=== PATIENT | female | born 1955 | race Caucasian/White ===

== ENCOUNTER 2024-05-15 12:59 | Outpatient (AMB) | payer OTHER, SELFPAY ==
--- NOTE | 2024-05-15 13:10 | A.OFFPC_ITS ---
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 Intake Note: New patient visit Allergies No Known Allergies Allergy (Verified 05/15/24 13:19) Medication List - Last Reconciled 05/15/24 by Nadiya Griggs PA-C atorvastatin 10 mg PO DAILY fluoxetine 20 mg PO DAILY levothyroxine 50 mcg PO DAILY Tobacco use date assessed: 05/15/24 Fall risk assessment: No Falls in past year Last assessed Fall Risk: 05/15/24 Dental Screening Dental Screen Date: 05/15/24 Did you have a dental visit in the last 12 months?: Yes Did you have a dental problem in the last 6 months where you did not have access to dental care?: No Was dental information given to patient?: Patient has dentist HPI H[employer] INST[employer]ER AND REPAIRER establish care HPI Details Patient is a 68-year-old female who presents today to establish care. She has a significant past medical history of depression, hyperlipidemia, and hypothyroidism. She is transferring from [place]. She states that she moved here last year. In 2021 she lost her so then she retired, sold her house and moved back to [place] where she is from. CV: Blood pressures have always been normal. Her blood pressure today in the office is 90/60. She is on atorvastatin 10 mg. States that her last cholesterol was normal. She does have a copy of it from [place] and last year her LDL was 80. HDL 60, triglycerides 113, cholesterol 163. LFTs WNL. Endo: Last TSH was 1.33. She is on levothyroxine 50 mcg. Psych: States that she has been well-controlled on the fluoxetine 20 mg. Immunizations up-to-date. Colonoscopy: Overdue Mammogram: Due this fall Pap: S/p partial hysterectomy Bone density: Overdue Low-dose chest CT: She states that she has had 1 in the past. She continues to smoke and does not have any intention of quitting [facility] Surgical History (Updated 05/15/24 @ 13:47 by Nadiya Griggs PA-C) H/O wisdom tooth extraction History of partial hysterectomy History of tonsillectomy Social History (Updated 05/15/24 @ 13:13 by Michelle Ríos CMA) Housing: Condominium Patient Tobacco Use Status: Current everyday Tobacco user Cigarette Packs Per Day: 10 Years Smoked: 55 e-Cigarette/Vaping Use: Never Used Second Hand Smoke Exposure: No Current occupational status: retired Current occupational exposures/hazards: No Cognitive needs: No Hearing needs: No Vision needs: Yes (reading glasses) Questionnaire PHQ-9 Over the last 2 weeks, how often have you been bothered by any of the following problems? 1. Little interest or pleasure in doing things: not at all 2. Feeling down, depressed, or hopeless: not at all 3. Trouble falling or staying asleep, or sleeping too much: several days 4. Feeling tired or having little energy: several days 5. Poor appetite or overeating: not at all 6. Feeling bad about yourself - or that you are a failure or have let yourself or your family down: not at all 7. Trouble concentrating on things, such as reading the newspaper or watching television: not at all 8. Moving or speaking so slowly that other people could have noticed. Or the opposite - being so fidgety or restless that you have been moving around a lot more than usual: not at all 9. Thoughts that you would be better off or of hurting yourself in some way: not at all Total score: 2 Depression Screening Interpretation: Negative Depression Screening Done: Yes 73169 - PHQ-9 Billing: Yes Source: Developed by Drs. Liban Marquez, Christine Wesley, Carlton Ramos and colleagues, with an educational jojo from [employer] Thrive Questionnaire I am a: Patient What is your living situation today?: I have a steady place to live Within the past 12 months, did the food you bought not last and you didn't have the money to get more?: Never true Within the past 12 months, did you worry whether your food would run out before you got money to buy more?: Never true Do you have trouble paying for medicines?: No Do you have trouble getting transportation to medical appointments?: No Do you have trouble paying your heating and electricity bill?: No Do you have trouble taking care of your child, family member or friend?: No Do you have trouble with day-to-day activities such as bathing, preparing meals, shopping, managing finances, etc.?: No Are you currently unemployed and looking for a job?: No Are you interested in more education?: No Please select the resources that you would like help with: None Currently or been in a relationship where the following occur: No concerns reported THRIVE Score: 0 AUDIT C Alcohol Use Questionnaire (AUDIT-C) 1. How often do you have a drink containing alcohol?: Monthly or less 2. How many drinks containing alcohol do you have on a typical day when you are drinking?: 1 or 2 3. How often do you have six or more drinks on one occasion?: Never Total Score: 1 Score Reviewed/Action Taken: Yes AURORA-7 AMB Questionnaire AURORA-7 Feeling nervous, anxious, or on edge: 0 = Not at all Not being able to stop or control worryin = Not at all Worrying too much about different things: 0 = Not at all Trouble relaxin = Not at all Being so restless that it is hard to sit still: 0 = Not at all Becoming easily annoyed or irritable: 0 = Not at all Feeling afraid as if something awful might happen: 0 = Not at all Total AURORA-7 score (0-4 normal; 5-9 mild; 10-14 moderate; 15-21 severe): 0 Source: Developed by Drs. Liban Marquez, Christine Wesley, Carlton Ramos and colleagues, with an educational jojo from [employer] AURORA-7 Assessment Billing AURORA-7 Assessment Tool: AURORA-7 Assessment 22706 Physical exam (Primary Care) Vital Signs: Last Vital Signs Temp 98.7 F 05/15/24 13:25 Pulse 67 05/15/24 13:25 Resp 14 05/15/24 13:25 BP 90/60 05/15/24 13:25 Pulse Ox 95 05/15/24 13:25 Oxygen Delivery Method Room Air 05/15/24 13:25 BMI result Body Mass Index 25.3 Tobacco/Smoking Status: Tobacco use Status Tobacco use date assessed 05/15/24 05/15/24 13:18 Patient Tobacco Use Status Never used Tobacco 05/15/24 13:18 e-Cigarette/Vaping Use Never Used 05/15/24 13:18 Depression Screening Interpretation: Negative Currently or been in a relationship where the following occur: No concerns reported Const Orientation/consciousness: patient oriented x3 HENMT Ears: hearing grossly normal bilaterally Neck Thyroid: Thyroid normal Lymphatic: no lymphadenopathy noted Resp Auscultation: clear to auscultation bilaterally Cardio Rate: regular rate Rhythm: regular rhythm Heart sounds: S1 normal heart sound present and S2 normal heart sound present GI Inspection: Yes normal to inspection Palpation (GI): Soft to palpation and Other GI palpation findings present (nontender, no cva tenderness) Auscultation: normoactive bowel sounds Rectal Exam - Female: deferred Skin General skin exam: no rashes or lesions noted Neuro General: patient oriented x3, gait normal and no focal motor deficits Assessment and Plan Assessment & Plan (1) Hyperlipidemia: Code(s): E78.5 - Hyperlipidemia, unspecified Qualifiers: Hyperlipidemia type: mixed hyperlipidemia Qualified Code(s): E78.2 - Mixed hyperlipidemia Plan: continue atorvastatin (2) Hypothyroid: Code(s): E03.9 - Hypothyroidism, unspecified Qualifiers: Hypothyroidism type: unspecified Qualified Code(s): E03.9 - Hypothyroidism, unspecified Plan: tsh ordered. continue levothyroxine 50 mcg (3) Recurrent depressive disorder, current episode mild: Code(s): F33.0 - Major depressive disorder, recurrent, mild Plan: continue prozac. (4) Tobacco use: Code(s): Z72.0 - Tobacco use Plan: Low-dose chest CT ordered Bone density ordered Labs ordered Colonoscopy ordered Orders: Orders Comprehensive [place]. Panel Fast Today E03.9 - Hypothyroidism, unspecified, E78.5 - Hyperlipidemia, unspecified, F33.0 - Major depressive disorder, recurrent, mild Lipid Panel Today E03.9 - Hypothyroidism, unspecified, E78.5 - Hyperlipidemia, unspecified, F33.0 - Major depressive disorder, recurrent, mild UA CC w/rflx Micro + Cult Today E03.9 - Hypothyroidism, unspecified, E78.5 - Hyperlipidemia, unspecified, F33.0 - Major depressive disorder, recurrent, mild Complete Blood Count Auto Diff Today E03.9 - Hypothyroidism, unspecified, E78.5 - Hyperlipidemia, unspecified, F33.0 - Major depressive disorder, recurrent, mild TSH reflex Free T4 Today E03.9 - Hypothyroidism, unspecified, E78.5 - Hyperlipidemia, unspecified, F33.0 - Major depressive disorder, recurrent, mild XR DEXA axial skeleton Today Z78.0 - Asymptomatic menopausal state Referrals Open Access Screening Colonoscopy Referral Z12.11 - Encounter for screening for malignant neoplasm of colon, Z12.12 - Encounter for screening for malignant neoplasm of rectum Thoracic/General Surgery Referral Z12.2 - Encounter for screening for malignant neoplasm of respiratory organs, Z72.0 - Tobacco use Coding Level of Care Code New Pt Level 4 (06828) Complex EM visit Add On G2211 Diagnoses Mixed hyperlipidemia E78.2 Hyperlipidemia type: mixed hyperlipidemia Hypothyroidism, unspecified type E03.9 Hypothyroidism type: unspecified Recurrent depressive disorder, current episode mild F33.0 Tobacco use Z72.0 Additional Codes AURORA-7 Assessment Billing - AURORA-7 Assessment Tool: AURORA-7 Assessment 48058 ([id number])
[2024-05-15 13:25] VITALS: BP 90/60; PULSE 67; RESP 14; TEMP 37.1; O2SAT 95; BMI 25.3
== END 2024-05-15 14:04 | disposition home or self-care (01) ==
PROVIDERS: PCP Physician Assistant; Visit Provider Physician Assistant
DX: E78.2 Mixed hyperlipidemia (principal); E03.9 Hypothyroidism, unspecified; F33.0 Major depressive disorder, recurrent, mild; Z72.0 Tobacco use
CPT/HCPCS: 99204; G2211

== ENCOUNTER 2024-05-16 09:02 | Outpatient (REF) | payer OTHER, SELFPAY ==
[2024-05-16 10:57] LABS: MANUAL DIFF FLAG NO
[2024-05-16 11:03] LABS: Appearance Urine Clear; Color Urine Yellow; Glucose Urine UA Negative (Negative); Leukocyte Esterase Urine Moderate (2+) (Negative); Nitrite Urine Negative (Negative); UMIC TRIGGER UACC YES; Urine Blood Trace (Negative); Urine Ketones Negative (Negative); Urine Protein Trace mg/dL (Neg-Trace)
[2024-05-16 11:08] LABS: Basophils Absolute Auto 0.1 X10*3/uL (0.0-0.2); Basophils Percent Auto 1.3 % (0-2); Eosinophils Absolute Auto 0.1 X10*3/uL (0.0-0.4); Eosinophils Percent Auto 1.9 % (0-4); Hemoglobin 13.6 g/dl (12.0-16.0); Imm Gran Abs Auto 0.01 X10*3/uL (0.00-0.03); Imm Gran Pct Auto 0.2 % (0.0-0.4); Lymphocytes Absolute Auto 2.2 X10*3/uL (1.2-4.9); Lymphocytes Percent Auto 40.3 % (20-40); Mean Corpuscular Hemoglobin 32.9 pg (27.0-33.0); Mean Corpuscular Volume 96.6 fL (80.0-98.0); Mean Platelet Volume 10.1 fL (9.4-12.3); Monocytes Absolute Auto 0.3 X10*3/uL (0.1-1.2); Monocytes Percent Auto 6.2 % (2-11); Neutrophils Absolute Auto 2.7 x10*3/uL (2.0-8.3); Neutrophils Percent Auto 50.1 % (45-73); Platelet Count 210 X10*3/uL (160-400); Red Blood Count 4.14 X10*6/uL (4.20-5.50); Red Cell Distribution Width 12.2 % (11.0-16.0); White Blood Count 5.3 X10*3/uL (4.8-10.8)
[2024-05-16 11:09] LABS: Bacteria Urine None Seen (None Seen); Hyaline Casts Urine 0-2 /LPF (0-2); UACC Culture Trigger YES
[2024-05-16 11:19] LABS: Alanine Aminotransferase 17 U/L (0-31); Albumin Level 4.4 g/dL (3.5-5.0); Alkaline Phosphatase 48 U/L (39-117); Anion Gap 13 (12-20); Aspartate Amino Transferase 18 U/L (5-31); Bilirubin Total 0.4 mg/dL (0.0-1.0); Blood Urea Nitrogen 12 mg/dL (9-16); Calcium 9.9 mg/dL (8.4-10.2); Carbon Dioxide 26 mmol/L (22-29); Chloride 107 mmol/L (96-108); Cholesterol 199 mg/dL (<200); Estimated Glomerular Filt Rate > 60; Glucose Fasting 97 mg/dL (60-99); HDL Cholesterol 46 mg/dL (>40); LDL Cholesterol Calculated 111 mg/dL (<100); Potassium 4.3 mmol/L (3.3-5.1); Sodium 142 mmol/L (135-145); Total Protein 6.9 g/dL (6.5-8.0); Triglycerides 212 mg/dL (<150)
[2024-05-16 11:38] LABS: TSH reflex Free T4 1.84 uIU/mL (0.32-4.0)
== END 2024-05-16 09:03 | disposition home or self-care (01) ==
LOC: HO.WFDLDS 09:02
PROVIDERS: Visit Provider Physician Assistant
DX: E78.5 Hyperlipidemia, unspecified (principal); E03.9 Hypothyroidism, unspecified; F33.0 Major depressive disorder, recurrent, mild
CPT/HCPCS: 36415; 80053; 80061; 81001; 81003; 84443; 85025; 87086

== ENCOUNTER 2024-05-27 10:39 | Outpatient (REF) | payer MEDICARE, SELFPAY ==
--- NOTE | ~2024-05-27 | MM_ITS ---
EXAMINATION: BONE DENSITOMETRY CLINICAL INDICATION: Asymptomatic menopausal state. COMPARISON: This is the patient's baseline examination. TECHNIQUE: Using a [employer] DXA System (software version: 13.1) manufactured by [employer], dual-energy x-ray absorptiometry was performed of the lumbar spine and left hip. The images are of good technical quality. Summary results are attached. FINDINGS: LEFT FEMUR, NECK: BMD 0.737 g/cm2, Z-score -0.3, T-score -2.2, osteopenia. LEFT FEMUR, TOTAL: BMD 0.820 g/cm2, Z-score 0, T-score -1.5, osteopenia. AP SPINE L1-L4: BMD 0.902 g/cm2, Z-score -0.4, T-score -2.3, osteopenia. IDENTIFIED RISK FACTORS: Early menopause, secondary osteoporosis, hysterectomy, history of fracture (adult), current smoker, low calcium intake. HISTORY OF FRACTURE: Wrist. MEDICATIONS: Calcium. MM/XR DEXA axial skeleton IMPRESSION: 1. DIAGNOSIS: Osteopenia based on the lowest T-score value of -2.3 in the lumbar spine applying World Health Organization criteria. 2. 10-YEAR FRACTURE RISK PREDICTION, FRAX: Major osteoporotic fracture (clinical spine, forearm, hip or shoulder) 21.4%. Hip fracture 7.2%. 3. Treatment Recommendations: NOF guidelines recommend consideration for treatment in postmenopausal women and men age 50 and older presenting with the following: -A hip or vertebral (clinical or morphometric) fracture. -T-score less than or equal to -2.5 at the femoral neck or spine after appropriate evaluation to exclude secondary causes. -Low bone mass at the hip or spine and a 10-year fracture probability by FRAX of greater than or equal to 3% for hip fracture or greater than or equal to 20% for major osteoporotic fracture based on the [place] adapted WHO algorithm. 4. Other Recommendations: All treatment decisions require clinical judgment and consideration of individual patient factors, including patient preferences, comorbidities, previous drug use, risk factors not captured in the FRAX model (e.g. frailty, falls, vitamin D deficiency, increased bone turnover, interval significant decline in bone density) and possible under or overestimation of fracture risk by FRAX. Additional medical evaluation for secondary cause of low bone mineral density may be appropriate. FUTURE SCAN RECOMMENDATION: People with diagnosed cases of osteoporosis or at high risk for fracture should have regular bone mineral density tests. For patients eligible for Medicare, routine testing is allowed once every 2 years. The testing frequency can be increased to one year for patients who have rapidly progressing disease, those who are receiving or discontinuing medical therapy to restore bone mass, or have additional risk factors. Electronically signed by: Ori Frazier MD 06/04/2024 08:52 AM EDT
== END 2024-05-27 10:40 | disposition home or self-care (01) ==
LOC: HO.MAMMO 10:39
PROVIDERS: PCP Physician Assistant; Visit Provider Physician Assistant
DX: Z13.820 Encounter for screening for osteoporosis (principal); Z78.0 Asymptomatic menopausal state
CPT/HCPCS: 77080

== ENCOUNTER 2024-05-29 13:11 | Outpatient (REF) | payer MEDICARE, SELFPAY ==
[2024-05-29 14:21] LABS: Appearance Urine Clear; Color Urine Yellow; Glucose Urine UA Negative (Negative); Leukocyte Esterase Urine Negative (Negative); Nitrite Urine Negative (Negative); PH 5.5 (5.0-9.0); Specific Gravity - Urine <= 1.005 (1.005-1.025); Urine Blood Negative (Negative); Urine Ketones Negative (Negative); Urine Protein Negative (Neg-Trace)
== END 2024-05-29 13:12 | disposition home or self-care (01) ==
LOC: HO.WFDLDS 13:11
PROVIDERS: Visit Provider Physician Assistant
DX: E78.5 Hyperlipidemia, unspecified (principal); E03.9 Hypothyroidism, unspecified; F33.0 Major depressive disorder, recurrent, mild
CPT/HCPCS: 81003

== ENCOUNTER 2024-07-18 10:04 | Outpatient (AMB) | payer MEDICARE, SELFPAY ==
--- NOTE | 2024-07-18 07:49 | MHC.OFFVIS ---
Intake Visit Reasons: Current Smoker Allergies No Known Allergies Allergy (Verified 05/15/24 13:19) HPI HPI Current Smoker: Details: Initial visit for this 68yo smoker with a 26PYH. Patient started smoking at age 11 for 52 years at 1/2ppd. She had quit for a period of 5 years in past. . Denies marijuana use. Denies second hand smoke exposure. Denies exposure to chemicals or substances like asbestos. . Reports family history of lung cancer. Mother at 80yo Denies personal history of cancers. Denies chest CT in last year. . Denies recent travel outside the [place]. Denies recent respiratory illness or recent hospitalization for respiratory issues. Denies testing positive for COVID. Admits receiving COVID Vaccine. . Denies fever, chills, new/worsening cough, hemoptysis, hoarseness or dysphagia. Denies significant chest pain, significant dyspnea or unintentional weight loss. Patient Lung Cancer Screening Questionnaire reviewed with patient by provider. . Shared Decision Making Completed. Patient meets criteria. Discussed in detail with patient, the risk vs benefit of LDCT screening. Patient consents to proceed with scan. Discussed smoking cessation. [facility] Medical History (Updated 07/18/24 @ 10:17 by Greer Schulz PA-C) Hypothyroid Hyperlipidemia Recurrent depressive disorder, current episode mild Nicotine dependence, cigarettes, uncomplicated Surgical History (Updated 07/18/24 @ 10:12 by Greer Schulz PA-C) History of kidney surgery History of bilateral breast reduction surgery History of History of partial hysterectomy History of tonsillectomy History of wisdom tooth extraction Family History (Updated 07/18/24 @ 10:17 by Greer Schulz PA-C) Mother Lung cancer Social History (Updated 07/18/24 @ 10:17 by Greer Schulz PA-C) Housing: Condominium Patient Tobacco Use Status: Current everyday Tobacco user Cigarette Packs Per Day: 10 Years Smoked: (onset 11yo, 1/2ppd x 52yrs, 26pyh, +fam hx lung ca mom) e-Cigarette/Vaping Use: Never Used Second Hand Smoke Exposure: No Current occupational status: retired Current occupational exposures/hazards: No Cognitive needs: No Hearing needs: No Vision needs: Yes (reading glasses) Assessment & Plan Assessment & Plan (1) Nicotine dependence, cigarettes, uncomplicated: Comment: (onset 11yo, 1/2ppd x 52yrs, 26pyh, +fam hx lung ca mom) Code(s): F17.210 - Nicotine dependence, cigarettes, uncomplicated Category: Medical Plan: - SDM visit completed today in office. - Patient meets criteria for LDCT for lung cancer screening purposes and is asymptomatic. - Smoking cessation counseling offered. Patients can always call [phone]. - Will arrange for a LDCT scan of the chest for screening purposes at [facility]. - Risks, benefits, and alternatives were discussed in detail and the patient agrees to proceed. - Risks discussed include but are not limited to: radiation exposure, anxiety during testing and while awaiting results, false negatives, false positives and possibility of additional intervention such as further imaging or surgical procedures for benign disease. - Benefits are obviously detection of lung cancer at an early stage which can lead to improved outcomes. - Discussed the importance of screening program compliance with adherence to yearly LDCT scan as scheduled - or sooner interval scans for personalized screening regimen. - Discussed follow up plan. Our office will send a letter discussing results and if needed set up phone call and office visit based on CT findings. - Patient educated on results categorization and the management decisions for suspicious findings potentially found on the screening LDCT scan. Any patient with a Lung RADS score of 3 or 4 will be reviewed by a multidisciplinary team at [facility] to form a plan of action in regards to scan findings. - If further work up is warranted for a suspicious lung finding this will be followed by the Lung Cancer Screening program in conjunction with the Thoracic Surgery Department at [facility]. - A copy of the office note and LDCT will be sent to the patient's PCP - as well as documentation on any associated further plans of care. - Incidental findings on LDCT are the PCP's responsibility. These findings are indicated with an S finding on the LDCT Assessment. A note discussing the findings will be sent to the PCP who is then responsible for further management. - All questions answered.? Coding Level of Care Code Lung Cancer Screening G0296 Diagnoses Nicotine dependence, cigarettes, uncomplicated F17.210
== END 2024-07-18 10:31 | disposition home or self-care (01) ==
PROVIDERS: PCP Physician Assistant; Visit Provider Physician Assistant Medical
DX: F17.210 Nicotine dependence, cigarettes, uncomplicated (principal)
CPT/HCPCS: G0296

== ENCOUNTER 2024-07-18 10:18 | Outpatient (REF) | payer MEDICARE, SELFPAY ==
--- NOTE | ~2024-07-18 | CT_ITS ---
EXAMINATION: CT LOW-DOSE SCREENING CHEST WITHOUT CONTRAST CLINICAL INFORMATION: Nicotine dependence, cigarettes, uncomplicated. The patient is a current smoker with a 55 pack-year history of smoking. COMPARISON: None available. TECHNIQUE: Multidetector volumetric CT imaging of the chest is performed on a Siemens SOMATOM Definition scanner without contrast using low dose technique. Additional 2D coronal and sagittal reformatted images and axial 3D maximum intensity projection (MIP) images are generated on the CT workstation. This CT examination was performed using dose optimization techniques as appropriate, variously including the following: *Automated exposure control *Adjustment of mA and/or kV according to patient size (this includes techniques or standardized protocols for targeted exams where dose is matched to indication/reason for exam; i.e. extremities or head) *Use of iterative reconstruction technique TOTAL EXAM DLP: 46 mGy-cm. CTDIvol: 1.47 mGy. FINDINGS: PULMONARY NODULES: There is a 3.8 mm right upper lobe pulmonary nodule (5:135 along with a 4.2 mm right upper lobe nodule (5:161). A few other tiny micronodules are seen. No suspicious lung masses detected. LUNGS: Lungs bilaterally symmetrically expanded. There is mild emphysema and bronchial thickening without bronchiectasis. No effusion or pneumothorax. Central airways patent. MEDIASTINUM: No mediastinal, hilar or axillary adenopathy or free fluid collection. CORONARY ARTERY CALCIFICATION: None visualized on this study. THYROID GLAND: Unremarkable to the extent seen. CARDIOVASCULAR STRUCTURES: Aortic and heart size normal. No pericardial effusion. CHEST WALL/AXILLA: Unremarkable. UPPER ABDOMEN: Included portions of the solid organs in the upper abdomen unremarkable on noncontrast imaging. OSSEOUS STRUCTURES: No suspicious focal findings. CT/CT lung screening IMPRESSION: No findings seen suspicious for malignancy. ASSESSMENT: 1. Lung-RADS Category 2: Benign appearance or behavior of nodules. N/A 2. Lung-RADS Category S: Negative. There are no clinically significant or potentially clinically significant findings not related to the lungs requiring urgent additional evaluation. RECOMMENDATION: Continued routine annual low-dose CT lung screening in 1 year is recommended. An order for CT CHEST LOW DOSE CANCER SCREENING ([id number]) can be placed. Electronically signed by: Rk Perez MD 08/29/2024 11:24 PM [facility]
== END 2024-07-18 10:19 | disposition home or self-care (01) ==
LOC: HO.CT 10:18
PROVIDERS: PCP Physician Assistant; Visit Provider Physician Assistant Medical
DX: Z12.2 Encounter for screening for malignant neoplasm of respiratory organs (principal); F17.210 Nicotine dependence, cigarettes, uncomplicated
CPT/HCPCS: 71271; G0296

== ENCOUNTER → 2024-08-11 13:49 | Outpatient (BNVA) | payer MEDICARE, SELFPAY | PROVIDERS: PCP Physician Assistant; Visit Provider Internal Medicine | DX: K58.1 Irritable bowel syndrome with constipation (principal); K59.04 Chronic idiopathic constipation; Z86.0100 Personal history of colon polyps, unspecified | CPT/HCPCS: 99202 ==

== ENCOUNTER → 2024-08-11 13:49 | Outpatient (AMB) | payer MEDICARE, SELFPAY ==
--- NOTE | 2024-08-11 14:10 | A.OFFVIS_ITS ---
Vital Signs 08/11/24 14:22 Height 5 ft Weight 123 lb 7.342 oz BMI 24.1 BP 112/57 L Blood Pressure Location Lt brachial Position Sitting Pulse 71 Intake Visit Reasons: Irritable bowel syndrome Intake Note: Gail presents in the office as a new patient for IBS. CC: She deals with constipation but she states that it comes and goes. Sometimes she will be okay and other times she can go 3 weeks with no bowel movement. No blood when she has a BM. 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 Pt reports being diagnosed decades ago with IBS-C. However based on her sx so unds more like CIC as she does not have abd pain with this. Sometimes does not go for almost 2 weeks. Has diet good in fiber, hydration. Has learnt to cope so barely uses anything for constipation. Uses milk of mag 1 cup once a day if is backed up for more than a week. Pt also due for colo. Last colo was done in 2017 in [facility] in [place]. Had polyps and was given a 5 years recall. No fam hx of CRC, IBD. [facility] Medical History Hypothyroid Hyperlipidemia Recurrent depressive disorder, current episode mild Nicotine dependence, cigarettes, uncomplicated Surgical History History of kidney surgery History of bilateral breast reduction surgery History of History of partial hysterectomy History of tonsillectomy History of wisdom tooth extraction Family History Mother Lung cancer Social History Housing: Condominium Patient Tobacco Use Status: Current everyday Tobacco user Cigarette Packs Per Day: 10 Years Smoked: (onset 11yo, 1/2ppd x 52yrs, 26pyh, +fam hx lung ca mom) e-Cigarette/Vaping Use: Never Used Second Hand Smoke Exposure: No Current occupational status: retired Current occupational exposures/hazards: No Cognitive needs: No Hearing needs: No Vision needs: Yes (reading glasses) Physical Exam Vital Signs: Last Vital Signs Pulse 71 08/11/24 14:22 BP 112/57 L 08/11/24 14:22 BMI result Body Mass Index 24.1 Assessment & Plan Assessment & Plan (1) Personal history of colonic polyps: Code(s): Z86.0100 - Personal history of colon polyps, unspecified Category: Medical (2) Chronic idiopathic constipation: Code(s): K59.04 - Chronic idiopathic constipation Category: Medical Plan Due for surveillance colo. Will send msg to schedulers. PEG prep Rxed and instructions reviewed. Not on DM meds or anti-coagulants. In terms of CIC, pt already on good amount of fiber and hydration. Recommend adding miralax daily or as titrated to effect. Can escalate therapy based on response. Medications: New peg 3350-electrolytes 236-22.74-6.74 -5.86 gram (Golytely) as per split prep instructions, until fecal effluent is clear 240 mL PO Q10M 4,000 mL 0RF colonoscopy Coding Level of Care Code New Pt Level 3 (27129) Diagnoses Personal history of colonic polyps Z86.0100 Chronic idiopathic constipation K59.04
[2024-08-11 14:22] VITALS: BP 112/57; PULSE 71; BMI 24.1
== END ==
PROVIDERS: PCP Physician Assistant; Visit Provider Internal Medicine
DX: Z86.0100 Personal history of colon polyps, unspecified (principal); K59.04 Chronic idiopathic constipation
CPT/HCPCS: 99203

== ENCOUNTER 2024-12-03 15:05 | Outpatient (AMB) | payer MEDICARE, SELFPAY ==
--- NOTE | 2024-12-03 15:47 | A.OFFPC_ITS ---
Vital Signs 12/03/24 15:48 Height 5 ft Weight 124 lb BMI 24.2 BP 102/64 Blood Pressure Location Rt brachial Position Sitting Intake Visit Reasons: mwv Allergies No Known Allergies Allergy (Verified 08/11/24 14:25) Medication List - Last Reconciled 12/03/24 by Nadiya Griggs PA-C atorvastatin 10 mg PO DAILY karena phos-mag mybve-R-C3-phos 187.5-40-7.5 mg tabs PO fluoxetine 20 mg PO DAILY levothyroxine 50 mcg PO DAILY peg 3350-electrolytes 236-22.74-6.74 -5.86 gram (Golytely) 240 mL PO Q10M Tobacco use date assessed: 05/15/24 Dental Screening Dental Screen Date: 05/15/24 HPI mwv HPI Details Patient is a 68-year-old female who presents today to For a physical exam.She has a significant past medical history of depression, hyperlipidemia, and hypothyroidism. CV: Blood pressures have always been normal. Her blood pressure today in the office is 102/64. She is on atorvastatin 10 mg. Endo: Last TSH was 1.33. She is on levothyroxine 50 mcg. Psych: States that she has been well-controlled on the fluoxetine 20 mg. derm: Following with [facility] for skin checks. Musculoskeletal: Rolled her right foot today when she got up off the couch. No swelling. She says that there is a little bit of point tenderness on the top part of her foot but no bruising. Does not think that she broke it. No numbness or tingling. Immunizations up-to-date. Colonoscopy: Overdue- Booked in December Mammogram: UTD Pap: S/p partial hysterectomy Bone density: UTD- osteopenia Low-dose chest CT: [facility] Medical History Hypothyroid Hyperlipidemia Recurrent depressive disorder, current episode mild Nicotine dependence, cigarettes, uncomplicated Surgical History History of kidney surgery History of bilateral breast reduction surgery History of History of partial hysterectomy History of tonsillectomy History of wisdom tooth extraction Family History Mother Lung cancer Social History Housing: Condominium Patient Tobacco Use Status: Current everyday Tobacco user Cigarette Packs Per Day: 10 Years Smoked: (onset 11yo, 1/2ppd x 52yrs, 26pyh, +fam hx lung ca mom) e-Cigarette/Vaping Use: Never Used Second Hand Smoke Exposure: No Current occupational status: retired Current occupational exposures/hazards: No Cognitive needs: No Hearing needs: No Vision needs: Yes (reading glasses) Questionnaire AUDIT C Alcohol Use Questionnaire (AUDIT-C) 2. How many drinks containing alcohol do you have on a typical day when you are drinking?: 1 or 2 3. How often do you have six or more drinks on one occasion?: Never Total Score: 0 Physical exam (Primary Care) Tobacco/Smoking Status: Tobacco use Status Tobacco use date assessed 05/15/24 05/15/24 13:18 Patient Tobacco Use Status Current everyday Tobacco 07/18/24 10:17 e-Cigarette/Vaping Use Never Used 07/18/24 10:17 Const Orientation/consciousness: patient oriented x3 HENMT Ears: hearing grossly normal bilaterally and TM's normal bilaterally General nose exam: No nasal polyps present Face and sinus: Yes sinuses nontender Mouth: Normal oral and palatal mucosa present Eyes Pupils: Equal, round and reactive pupils present EOM: EOMs intact bilaterally Neck Neck: Yes full ROM and Yes no lymphadenopathy Thyroid: Thyroid normal Chest Chest palpation & inspection: normal inspection of the chest Resp Auscultation: clear to auscultation bilaterally Cardio Rate: regular rate Rhythm: regular rhythm Heart sounds: S1 normal heart sound present and S2 normal heart sound present Peripheral pulses: Peripheral pulses 2+ throughout GI Other: Soft, nontender Auscultation: normal bowel sounds Rectal Exam - Female: deferred General: Yes no CVA tenderness Back/Spine/Pelvis Other: Nontender Back: no CVA tenderness Skin General skin exam: no rashes or lesions noted Neuro General: patient oriented x3, gait normal, CN's II-XI intact bilaterally and deep tendon reflexes 2+ bilaterally Cranial nerves: Yes Equal, round and reactive pupils present Motor exam (neuro): 5/5 motor strength present throughout Sensory Exam: double simultaneous stimulation for sensation normal Coordination: ngwzxs-hk-awul test normal and Romberg test negative Extrem General: Yes normal to inspection and Yes full ROM Psych Affect: normal affect Attitude: cooperative Thought process: Normal thought process present Thought content: Normal thought content present Insight: Good insight present (Psych) Judgement: Good judgement present (Psych) Coding Level of Care Code Est Pt Level 4 (70106) Complex EM visit Add On G2211 Diagnoses Right foot pain M79.671 Hypothyroidism, unspecified type E03.9 Hypothyroidism type: unspecified Mixed hyperlipidemia E78.2 Hyperlipidemia type: mixed hyperlipidemia Recurrent depressive disorder, current episode mild F33.0 Assessment & Plan Assessment & Plan (1) Right foot pain: Code(s): M79.671 - Pain in right foot Category: Medical Plan: X-ray ordered. (2) Hypothyroid: Code(s): E03.9 - Hypothyroidism, unspecified Category: Medical Qualifiers: Hypothyroidism type: unspecified Qualified Code(s): E03.9 - Hypothyroidism, unspecified Plan: We will monitor TSH. Continue current regimen (3) Hyperlipidemia: Code(s): E78.5 - Hyperlipidemia, unspecified Category: Medical Qualifiers: Hyperlipidemia type: mixed hyperlipidemia Qualified Code(s): E78.2 - Mixed hyperlipidemia Plan: lipids and LFTs ordered. Continue atorvastatin (4) Recurrent depressive disorder, current episode mild: Code(s): F33.0 - Major depressive disorder, recurrent, mild Category: Medical Plan: well-controlled on fluoxetine. Orders: Orders Complete Blood Count Auto Diff Today E03.9 - Hypothyroidism, unspecified, E78.2 - Mixed hyperlipidemia, F33.0 - Major depressive disorder, recurrent, mild, M79.671 - Pain in right foot Lipid Panel Today E03.9 - Hypothyroidism, unspecified, E78.2 - Mixed hyperlipidemia, F33.0 - Major depressive disorder, recurrent, mild, M79.671 - Pain in right foot UA CC w/rflx Micro + Cult Today E03.9 - Hypothyroidism, unspecified, E78.2 - Mixed hyperlipidemia, F33.0 - Major depressive disorder, recurrent, mild, M79.671 - Pain in right foot, Z13.220 - Encounter for screening for lipoid disorders XR foot RT min 3V Today M79.671 - Pain in right foot Comprehensive [place]. Panel Fast Today E03.9 - Hypothyroidism, unspecified, E78.2 - Mixed hyperlipidemia, F33.0 - Major depressive disorder, recurrent, mild, M79.671 - Pain in right foot TSH reflex Free T4 Today E03.9 - Hypothyroidism, unspecified, E78.2 - Mixed hyperlipidemia, F33.0 - Major depressive disorder, recurrent, mild, M79.671 - Pain in right foot
[2024-12-03 15:48] VITALS: BP 102/64; BMI 24.2
--- OUTSIDE RECORDS SUMMARY | 2024-12-03 18:40 | XMS_ITS | Clinical Summary ---
Author Organization [address] [place] [address] Address [address] [place] [address] Phone Care Team Providers Care Sludge Filtration Attendant Name Role Phone Nadiya Griggs Primary Care Provider [phone] Allergies No known active allergies Medications atorvastatin (LIPITOR) 10 mg tablet Take 1 tablet (10 mg total) by mouth at bedtime. Active FLUoxetine (PROzac) 20 mg capsule Take 1 capsule (20 mg total) by mouth 1 (one) time each day. Active levothyroxine (SYNTHROID, LEVOTHROID) 50 mcg tablet Take 1 tablet (50 mcg total) by mouth 1 (one) time each day before breakfast. Active Encounters Date Type Department Care Team Description 11/04/2024 Telephone Gastroenterology - [place] [address] [place] [phone] Jalen Robert MD SPECIAL PROCEDURE from Last 3 Months Social History Tobacco Use Types Packs/Day Years Used Date Smoking Tobacco: Never Assessed Comments Unknown Sex and Gender Information Value Date Recorded Sex Assigned at Not on file Legal Sex Female 10:19 AM EST Gender Identity Not on file Sexual Orientation Not on file Plan of Treatment Health Maintenance Due Date Last Done Comments Breast Cancer Screening 1955 DTaP,Tdap,and Td Vaccines (1 - Tdap) 1972 Pneumococcal Vaccine: 50+ Ye ars (1 of 1 - PCV) 12/28/2003 Zoster Vaccines (1 of 2) 12/28/2003 COVID-19 Vaccine ( - 2023-2 5 season) 2024 Influenza Vaccine (#1) 2024 Colorectal Cancer Screening: Colonoscopy 11/04/2024 Depression Screening 11/04/2024 Falls Risk Assessment 11/04/2024 Hepatitis C Screening 11/04/2024 Medicare Annual Wellness Visit 11/04/2024 Osteoporosis Screening (Bone Density Screening) 11/04/2024 Social Influencers of Health Screening 11/04/2024 RSV Immunization Patients 60 + Years Old (1 - 1-dose 75+ series) 2028 HIB Vaccines Aged Out No longer eligi ble based on patient's age to complete this topic HPV Vaccines Aged Out No longer eligi ble based on patient's age to complete this topic Hepatitis A Vaccines Aged Out No long er eligible based on patient's age to complete this topic Hepatitis B Vaccines Aged Out No long er eligible based on patient's age to complete this topic IPV Vaccines Aged Out No longer eligi ble based on patient's age to complete this topic MMR Vaccines Aged Out No longer eligi ble based on patient's age to complete this topic Meningococcal ACWY Vaccine Aged Out N o longer eligible based on patient's age to complete this topic Meningococcal B Vacine Aged Out No lo nger eligible based on patient's age to complete this topic RSV Immunization Patients Un bambi 20 months Aged Out No longer eligible b ased on patient's age to complete this topic Varicella Vaccines Aged Out No longer eligible based on patient's age to complete this topic Insurance [employer] [place] [address] Care Teams Sludge Filtration Attendant Relationship Specialty Start Date End Date Nadiya Griggs PA [address] [place] [phone] PCP - General Physician Secondary School Teacher Librarian 11/04/24
--- OUTSIDE RECORDS SUMMARY | 2024-12-03 18:40 | XMS_ITS | Encounter Summary ---
Author Organization [facility] Address [id number] [place] [phone] Care Team Providers Care Bank Messenger Name Role Phone Nadiya Griggs Primary Care Provider Reason for Visit * Reason Onset Date Comments SPECIAL PROCEDURE 11/04/2024 Encounter Details Date Type Department Care Team (Late st Contact Info) Description 11/04/2024 Telephone Gastroenterology - [place] [address] [place] [address] [address] [facility] [address] [place] [phone] Jalen Robert MD [address] [facility] [address] [facility] [address] [place], [place] [id number] SPECIAL PROCEDURE Social History Tobacco Use Types Packs/Day Years Used Date Smoking Tobacco: Never Assessed Comments Unknown Sex and Gender Information Value Date Recorded Sex Assigned at Not on file Legal Sex Female 10:19 AM EST Gender Identity Not on file Sexual Orientation Not on file documented as of this encounter Progress Notes * Zulma Foreman - 11/04/2024 2:23 PM EST Pt called back and stated she is already scheduled with [facility] * Zulma Foreman - 11/04/2024 2:08 PM EST 1st attempt to schedule an appointment patient left message to call back Ask pt hx * Zulma Rivas [place] - 11/04/2024 11:52 AM EST Meds and allergies updated, given to GI schedulers. Tiffany * Marlyn Cain - 11/04/2024 10:30 AM EST Records received from [facility] for screening colonoscopy. Given to Tiffany to update meds& allergies. documented in this encounter Plan of Treatment Not on file documented as of this encounter Visit Diagnoses Not on filedocumented in this encounter Care Teams Bank Messenger Relationship Specialty Start Date End Date Nadiya Griggs PA [address] [place] [address] PCP - General Physician Bone Crusher 11/04/24 documented as of this encounter
== END 2024-12-03 16:35 | disposition home or self-care (01) ==
PROVIDERS: PCP Physician Assistant; Visit Provider Physician Assistant
DX: M79.671 Pain in right foot (principal); E03.9 Hypothyroidism, unspecified; E78.2 Mixed hyperlipidemia; F33.0 Major depressive disorder, recurrent, mild

== ENCOUNTER → 2024-12-03 15:05 | Outpatient (BNVA) | payer MEDICARE, SELFPAY | PROVIDERS: PCP Physician Assistant; Visit Provider Physician Assistant | DX: M79.671 Pain in right foot (principal); E03.9 Hypothyroidism, unspecified; E78.2 Mixed hyperlipidemia; F33.0 Major depressive disorder, recurrent, mild | CPT/HCPCS: 99212 ==

== ENCOUNTER 2024-12-23 10:04 | Day surgery (SDC) | payer MEDICARE, SELFPAY ==
[2024-12-19 12:07] VITALS: BMI 24.2
--- OUTSIDE RECORDS SUMMARY | 2024-12-19 14:44 | XMS_ITS | Clinical Summary ---
Author Organization [address] [place] [address] Address [address] [place] [address] Phone Care Team Providers Care Clinical Trials Specialist Name Role Phone Nadiya Griggs Primary Care Provider [phone] Allergies No known active allergies Medications atorvastatin [...] Care Team Description 11/04/2024 Telephone Gastroenterology - [place] [address] [place] [phone] Jalen Robert MD SPECIAL PROCEDURE from [...] complete this topic Insurance [employer] [place] [address] Care Teams Clinical Trials Specialist Relationship Specialty Start Date End Date Nadiya Griggs PA [address] [place] [phone] PCP - General Physician Press Tender [employer] Goods 11/04/24
[2024-12-23 10:15] VITALS: BP 112/64; PULSE 70; RESP 18; TEMP 36; O2SAT 98; BMI 23.8
--- NOTE | 2024-12-23 10:41 | MHC.SHP ---
Pre-Procedural Eval Section A - 24 Hr Update-Section A only Date of Service: 12/23/24 Section B - Complete if H&P > 30 days Chief Complaint: Personal history of colon polyps, unspecified Details of Present Illness: Hypothyroid Hyperlipidemia Recurrent depressive disorder, current episode mild Nicotine dependence, cigarettes, uncomplicated Surgical History History of kidney surgery History of bilateral breast reduction surgery History of History of partial hysterectomy History of tonsillectomy History of wisdom tooth extraction Allergies: Allergies Allergy/AdvReac Type Severity Reaction Status Date / Time No Known Allergies Allergy Verified 08/11/24 14:25 Review of Systems Review of Systems Comment: Ten point ROS negative Exam Exam Comment: Gen appear: No acute distress HEENT: no icterus Chest: No overt resp distress Abd: soft, nontender, nondistended Psych: Stable affect, answering questions appropriately Neuro: A/Ox3 noted to move all extremities spontaneously Ext: no peripheral edema Plan Diagnosis/Plan: Unchanged I have reviewed the history and physical and performed a pertinent physical examination on my patient. No changes have occurred unless specified. Time Spent With Patient Time: Total time managing care of this patient today ____ minutes.
--- NOTE | 2024-12-23 11:29 | HO.ANESPROP2 ---
HPI - Anesthesia Eval Consult details Narrative: 68 yo female patient for Colonoscopy PMFSH Active Problems Active Problems: All Active Problems Right foot pain (Acute) Chronic idiopathic constipation (Acute) Personal history of colonic polyps (Acute) Nicotine dependence, cigarettes - Last cigarette this morning Recurrent depressive disorder, current episode mild (Acute) Hypothyroid (Acute) Hyperlipidemia (Acute) Past Medical History Medical History Nicotine dependence, cigarettes, uncomplicated Recurrent depressive disorder, current episode mild Hypothyroid Hyperlipidemia Family History Family History Mother Lung cancer Family history of problems with anesthesia: No Surgical History Surgical History Hx of colonoscopy History of kidney surgery History of bilateral breast reduction surgery History of History of wisdom tooth extraction History of partial hysterectomy History of tonsillectomy History of Problems with Anesthesia: No Social History Social History Housing: Condominium Patient Tobacco Use Status: Current everyday Tobacco user Cigarette Packs Per Day: 10 Years Smoked: (onset 11yo, 1/2ppd x 50yrs, 26pyh, +fam hx lung ca mom) e-Cigarette/Vaping Use: Never Used Second Hand Smoke Exposure: No Have you been hit, kicked, punched, or otherwise hurt by someone within the past year? If so, by whom?: No Are you DNR?: No Advance Directives: No Advance Directives Information Provided: Yes Current occupational status: retired Current occupational exposures/hazards: No Cognitive needs: No Hearing needs: No Vision needs: Yes (reading glasses) Meds Allergies Allergy/AdvReac Type Severity Reaction Status Date / Time No Known Allergies Allergy Verified 08/11/24 14:25 Home Medications ?Medication ?Instructions ?Recorded ?Confirmed ?Last Taken ?Type calcium phos-mag hydrox-vit C and 1 tab PO DAILY 08/11/24 12/19/24 Unknown History D3-phos 187.5 mg-40 mg-7.5 mg tablet Exam Height,Weight and Vital Signs: Height 5 ft Weight 55.338 kg Last Vital Signs Temp 96.8 F 12/23/24 10:15 Pulse 70 12/23/24 10:15 Resp 18 12/23/24 10:15 BP 112/64 12/23/24 10:15 Pulse Ox 98 12/23/24 10:15 O2 Del Method Room Air 12/23/24 10:15 Airway Mallampati Class: II TM Dist: >3cm Neck ROM: Full Loose/Missing/Broken Teeth: Yes (Molars missing. Denies broken or loose teeth) Heart: RRR Lungs: CTAB Assessment and Plan Assessment Anesthesia Assessment: Anesthesia Plan Discussed and Chart Reviewed Final Anesthetic Review Family History of Problems with Anesthesia: No History of Problems with Anesthesia: No NPO: Yes ASA Class: II Final Preanesthetic Review: No Changes in Pt Med Stat, Meds/Allgs Chart Reviewed, Consent Obtained/Reviewed and Anes Risks/Benef Reviewed Patient Risk: Intermediate Procedure Risk: Low Assessment/Block/Sedation in SS: Assess/Block/Sedation-SS Anesthetic Plan Anesthetic Plan: TIVA Disposition: Standard PACU
--- NOTE | 2024-12-23 12:02 | P.OPN-COLO_ITS ---
Colonoscopy Operative Note Operative Note Date of Service: 12/23/24 Narrative: Procedure: Colonoscopy Indication: Personal history of polyps Endoscopist: Shantal Bowles MD Anesthesia Provider: Dr Una Vee Anesthesia type: MAC Instrument: Olympus [id number]-H190L Consent: Indication, risks vs benefits, and alternatives were discussed with the patient who gave written informed consent to proceed. EKG, pulse, pulse oximetry and blood pressure were monitored throughout the procedure. Please see anesthesia flowsheet. Procedure: The patient was brought to the procedure room and an abdominal binder was affixed to the lower abdomen. She was then placed in the left lateral decubitus position. IV medications were administered by the anesthesia provider in attendance. A digital rectal exam was performed which was abnormal for ext hemorrhoids. A distal attachment cap was affixed to the tip of the colonoscope which was then inserted through the anus and advanced through the colon to the cecum at 80 cm,and terminal ileum. Appendiceal orifice and ileocecal valve were identified. Mucosa was carefully examined under high definition white light as the instrument was slowly withdrawn in a retrograde panoramic fashion. Retroflexion was performed in rectum. The procedure was not difficult. There were no immediate obvious complications. The quality of the prep was BBPS: 3+3+2 = adequate Withdrawal time minutes. Limitations: No limitations. Findings: Mucosa: Normal to cecum and terminal ileum. Protruding lesions: * 1 sessile polyp of size 6 mm in cecum. Cold snare polypectomy was performed. The polyp was completely removed and retrieved. * 1 sessile polyp of size 10 mm in descending colon. Cold snare polypectomy was performed. The polyp was completely removed and retrieved. * Medium internal hemorrhoids [without] stigmata of recent bleeding. Impression: 1. Normal colon and terminal ileum mucosa 2. Total of 2 polyps removed 3. Internal and external hemorrhoids Recommendations: - Follow path results. - Repeat colonoscopy in 3 years if the polyps are sessile serrated or adenoma.
[2024-12-23 12:08] VITALS: BP 105/57; PULSE 65; RESP 18; TEMP 36.5; O2SAT 99
[2024-12-23 12:23] VITALS: BP 114/68; PULSE 57; RESP 18; TEMP 36.5; O2SAT 98
== END 2024-12-23 12:47 | disposition home or self-care (01) ==
PROVIDERS: PCP Physician Assistant; Visit Provider Internal Medicine
PROC: 0DJD8ZZ Inspection of Lower Intestinal Tract, Via Natural or Artificial Opening Endoscopic (ICD-10-PCS; CPT 45378; principal; 2024-12-23 12:00)
DX: Z12.11 Encounter for screening for malignant neoplasm of colon (principal); Z86.0101 Personal history of adenomatous and serrated colon polyps; D12.0 Benign neoplasm of cecum; K63.5 Polyp of colon; K57.30 Diverticulosis of large intestine without perforation or abscess without bleeding; K64.8 Other hemorrhoids; K64.4 Residual hemorrhoidal skin tags; K59.04 Chronic idiopathic constipation; E78.5 Hyperlipidemia, unspecified; E03.9 Hypothyroidism, unspecified; F33.0 Major depressive disorder, recurrent, mild; Z79.899 Other long term (current) drug therapy; Z98.890 Other specified postprocedural states; F17.210 Nicotine dependence, cigarettes, uncomplicated
CPT/HCPCS: 45385; 88305; J2003; J2704

== ENCOUNTER → 2024-12-23 10:04 | Outpatient (BNV) | payer MEDICARE, SELFPAY | PROVIDERS: PCP Physician Assistant; Visit Provider Internal Medicine | DX: Z12.11 Encounter for screening for malignant neoplasm of colon (principal); Z86.0100 Personal history of colon polyps, unspecified; K63.5 Polyp of colon; K64.8 Other hemorrhoids | CPT/HCPCS: 45385 ==

== ENCOUNTER 2025-02-11 14:20 | Outpatient (REF) | payer MEDICARE, SELFPAY ==
--- OUTSIDE RECORDS SUMMARY | 2025-02-11 15:31 | XMS_ITS | Clinical Summary ---
Author Organization [address] [facility] Address [address] [place] [address] Phone Care Team Providers Care Clock Repairer Name Role Phone Nadiya Griggs Primary Care Provider [phone] Allergies No known active allergies Medications atorvastatin (LIPITOR) 10 mg tablet Take 1 tablet (10 mg total) by mouth at bedtime. Active FLUoxetine (PROzac) 20 mg capsule Take 1 capsule (20 mg total) by mouth 1 (one) time each day. Active levothyroxine (SYNTHROID, LEVOTHROID) 50 mcg tablet Take 1 tablet (50 mcg total) by mouth 1 (one) time each day before breakfast. Active Social History Tobacco Use Types Packs/Day Years [...] Vaccine ( - 2023-2 5 season) 2024 Colorectal Cancer Screening: Colonoscopy 11/04/2024 Depression Screening 11/04/2024 Falls Risk Assessment 11/04/2024 Hepatitis C Screening 11/04/2024 Medicare Annual Wellness Visit 11/04/2024 Osteoporosis Screening (Bone Density Screening) 11/04/2024 Social Influencers of Health Screening 11/04/2024 Influenza Vaccine (Season Ended) 2025 RSV Immunization Adult Patie nts (1 - 1-dose 75+ series) 2028 HIB [...] age to complete this topic Meningococcal B Vaccine Aged Out No l onger eligible based on patient's age to complete this topic RSV Immunization Patients Un bambi 20 months Aged Out No longer eligible b ased on patient's age to complete this topic Varicella Vaccines Aged Out No longer eligible based on patient's age to complete this topic Insurance [employer] MEDICARE Care Teams Clock Repairer Relationship Specialty Start Date End Date Nadiya Griggs PA [address] [place] [address] PCP - General Physician Wastewater Plant Civil Engineer 11/04/24
== END 2025-02-11 14:21 | disposition home or self-care (01) ==
LOC: HO.MAMMO 14:20
PROVIDERS: PCP Physician Assistant; Visit Provider Physician Assistant
DX: Z12.31 Encounter for screening mammogram for malignant neoplasm of breast (principal)
CPT/HCPCS: 77063; 77067

== ENCOUNTER → 2025-02-11 14:45 | Outpatient (BNV) | payer MEDICARE, SELFPAY | PROVIDERS: PCP Physician Assistant; Visit Provider Internal Medicine | DX: Z12.31 Encounter for screening mammogram for malignant neoplasm of breast (principal) | CPT/HCPCS: 77063; 77067 ==

== ENCOUNTER 2025-05-09 19:27 | Emergency (ER) | payer MEDICARE, SELFPAY ==
[2025-05-09] VITALS (9 sets, daily range): BP systolic 106–134; BP diastolic 60–73; PULSE 48–63; RESP 16–18; TEMP 36.9; O2SAT 96–98; BMI 24.5
--- NOTE | 2025-05-09 | ECG_ITS ---
Test Reason : CP/ELEVATED TROP Blood Pressure : */* mmHG Vent. Rate : 49 BPM Atrial Rate : 49 BPM P-R Int : 208 ms QRS Dur : 76 ms QT Int : 468 ms P-R-T Axes : 72 21 57 degrees QTcB Int : 422 ms Sinus bradycardia Nonspecific T wave abnormality Abnormal ECG When compared with ECG of 09-May-2025 19:30, Criteria for Inferior infarct are no longer Present Referred By: Salbador Carter Electronically Signed By: HITESH MADDEN MD
--- NOTE | ~2025-05-09 | XR_ITS ---
CLINICAL HISTORY: chest pain 2 view chest x-ray Comparison: CT[facility] - CT LUNG SCREENING - 07/18/24 10:24 EDT Findings: No consolidation or effusion. Heart size is normal. No acute fracture. Nonspecific gas-filled loops of bowel within the abdomen are partially included in the Examination. IMPRESSION: 1. No acute findings. This document has been electronically signed by: Tommie Tidwell DO on 05/09/2025 20:28:26
--- NOTE | 2025-05-09 19:31 | ECG_ITS ---
Test Reason : CP Blood Pressure : */* mmHG Vent. Rate : 63 BPM Atrial Rate : 63 BPM P-R Int : 182 ms QRS Dur : 80 ms QT Int : 452 ms P-R-T Axes : 47 -13 48 degrees QTcB Int : 462 ms Normal sinus rhythm Inferior infarct , age undetermined Abnormal ECG No previous ECGs available Referred By: Generic ED Physician Electronically Signed By: HITESH MADDEN MD
--- NOTE | 2025-05-09 19:46 | ED_ITS ---
HPI - Chest Pain General Chief Complaint: Chest Pain Stated Complaint: chest pain Time Seen by Provider: 05/09/25 20:04 Source: patient Mode of arrival: ambulatory Limitations: no limitations History of Present Illness ED Provider: HPI narrative: Patient's history of hyperlipidemia, hypothyroidism no known coronary artery disease comes here for left-sided deep dull pain since yesterday 09:30 a.m. till 16:00 which got better after taking ibuprofen again today at 09:00 pain started in his not going away pain is continuous and dull and deep also complaining of left arm pain for last few hours no shortness of breath Related Data Home Medications ?Medication ?Instructions ?Recorded ?Confirmed calcium phos-mag hydrox-vit C and 1 tab PO DAILY 08/1112/19/24 D3-phos 187.5 mg-40 mg-7.5 mg tablet Previous Rx's ?Medication ?Instructions ?Recorded atorvastatin 10 mg tablet 10 mg PO DAILY #90 tabs 10/08 05/01 fluoxetine 20 mg capsule 20 mg PO DAILY #90 caps 10/08 05/01 levothyroxine 50 mcg tablet 50 mcg PO DAILY #90 tabs 0 10/24/24 azithromycin 250 mg tablet See Rx Instructions PO .COM PLEX #6 03/16/25 tabs Allergies Allergy/AdvReac Type Severity Reaction Status Date / Time No Known Allergies Allergy Verified 05/09/25 19:46 Review of Systems 2 Review of Systems: Yes all other systems are reviewed and are negative [facility] Past Medical History Medical History Nicotine dependence, cigarettes, uncomplicated Recurrent depressive disorder, current episode mild Hypothyroid Hyperlipidemia Surgical History Hx of colonoscopy (~12/23/24) History of kidney surgery History of bilateral breast reduction surgery History of History of wisdom tooth extraction History of partial hysterectomy History of tonsillectomy Family History Family History Mother Lung cancer Social History Social History [facility] Patient Tobacco Use Status: Current everyday Tobacco user Cigarette Packs Per Day: 10 Years Smoked: (onset 11yo, 1/2ppd x 52yrs, 26pyh, +fam hx lung ca mom) Smoked in Last 30 Days: Yes e-Cigarette/Vaping Use: Never Used Second Hand Smoke Exposure: No Use of substances other than those prescribed or required for medical reasons: No Advance Directives: No Advance Directives Information Provided: No Current occupational status: retired Current occupational exposures/hazards: No Cognitive needs: No Hearing needs: No Vision needs: Yes (reading glasses) Physical Exam 2 Vital Signs: Vital Signs: Last Vital Signs Temp 98.5 F 05/09/25 19:45 Pulse 50 05/10/25 01:00 Resp 16 05/10/25 00:44 BP 93/65 05/10/25 01:00 Pulse Ox 96 05/10/25 00:44 O2 Del Method Room Air 05/10/25 00:44 BMI result Body Mass Index 24.5 Appearance: Alert. Oriented X3. No acute distress. Eyes: PERRLA, No Nystagmus ENT: Pharynx normal. Oral Mucosa moist Neck: Normal inspection. Neck supple. CVS: Normal heart rate and rhythm. Pulses normal. No rub Respiratory: No respiratory distress. Equal air entry bilateral, no wheezing/rales/rhonchi Abdomen: Soft and nontender. Bowel sounds are present, no mass palpable, no CVA tenderness Skin: Skin warm and dry. Normal skin color. Normal skin turgor. Extremities: No lower extremity edema. No calf tenderness Neuro: Oriented X 3. No motor deficit. No sensory deficit.No cerebellar signs , cranial nerves II-XII intact Course Course Course Narrative: This is an RME performed by Dayami Denny CNP: Additional HPI, ROS, PE not included below will be deferred to primary provider. Patient is a 69-year-old female who presents emergency department for evaluation. Reports onset of chest pain yesterday she had an order it for many hours ultimately took ibuprofen and it went away in the afternoon. Today had return of pain to left anterior chest, described as varying quality of the sharp, dull, and pressure constant since this morning. Denying any shortness of breath. Plan: Serum lab, CXR, ECG, viral serologies Medications Administered Generic Name Dose Route Start Last Admin Trade Name Freq PRN Reason Stop Dose Admin Heparin Sodium/Sodium Chloride 25,000 unit in 250 mls @ 0 mls/hr 05/09/25 23:30 05/10/25 00:06 Heparin Sodium,Porcine/1/2ns IVCONT 12 units/kg/hr .Q0M ROSALBA 6.84 mls/hr Protocol Administration Per Protocol Nitroglycerin/Dextrose 100 mg in 250 mls @ 0 mls/hr 05/09/25 23:45 05/10/25 01:00 Nitroglycerin/D5w IVCONT 10 mcg/min .Q0M ROSALBA 1.5 mls/hr Protocol Titration Per Protocol Discontinued Medications Generic Name Dose Route Start Last Admin Trade Name Stacy PRN Reason Stop Dose Admin Aspirin 162 mg 05/09/25 20:29 05/09/25 21:16 Aspirin Enteric Coated 81 Mg Tablet. PO 05/09/25 20:30 162 mg ONCE ONE Administration Atorvastatin Calcium 80 mg 05/09/25 22:02 05/09/25 22:25 Atorvastatin Calcium 80 Mg Tablet PO 05/09/25 22:03 80 mg ONCE ONE Administration Heparin Sodium (Porcine) 5,000 unit 05/09/25 20:43 05/09/25 21:15 Heparin Sodium,Porcine 5,000 Unit/Ml Vial IVPUSH 05/09/25 20:44 5,000 unit ONCE ONE Administration Morphine Sulfate 2 mg 05/09/25 22:01 05/09/25 22:25 Morphine Sulfate 2 Mg/Ml Cartridge IVPUSH 05/09/25 22:02 2 mg ONCE ONE Administration Protocol Nitroglycerin 0.5 inch 05/09/25 20:29 05/09/25 21:15 Nitroglycerin 2 % Oint 1 Gm Packet TRANSDERMA 05/09/25 20:30 0.5 inch ONCE ONE Administration Nitroglycerin 0.4 mg 05/09/25 21:47 05/09/25 22:25 Nitroglycerin 0.4 Mg Tab.Subl SUBLINGUAL 05/09/25 21:48 0.4 mg ONCE ONE Administration Medical Decision Making Medical Decision Making [facility] Narrative: Patient's with chest pain non-STEMI with elevated troponin in 3071 EKG: Without any acute ST-elevation case discussed with Dr. Shelton site damage prevention technician started on heparin drip and if pain continues started on nitroglycerin table plan to transfer will give a small dose of morphine [id number] case discussed with Dr. Laurent site damage prevention technician at [facility] accepted the patient for transfer repeat troponin [id number] without any significant EKG changes except for T inversion in the lateral leads patientt improvement after nitroglycerin drip Differential Diagnosis Differential Diagnoses: The differential diagnosis associated with the presentation includes Admission/Observation Consideration of admission/observation: Escalation of care including admission/observation considered Lab Data [facility] Lab Attestation statement: I reviewed the patient's lab results. 05/09/25 20:04 05/09/25 20:04 Labs: Lab Results 05/09/25 05/09/25 Range/Units 20:04 22:36 WBC 8.4 (4.8-10.8) X10*3/uL RBC 4.04 L (4.20-5.50) X10*6/uL Hgb 12.9 (12.0-16.0) g/dl Hct 37.5 (37.0-47.0) % MCV 92.8 (80.0-98.0) fL MCH 31.9 (27.0-33.0) pg MCHC 34.4 (31.0-35.0) g/dl RDW 12.4 (11.0-16.0) % Plt Count 186 (160-400) X10*3/uL MPV 10.0 (9.4-12.3) fL Immature Gran % (Auto) 0.2 (0.0-0.4) % Neut % (Auto) 59.2 (45-73) % Lymph % (Auto) 34.4 (20-40) % Cassia % (Auto) 4.6 (2-11) % Eos % (Auto) 0.8 (0-4) % Baso % (Auto) 0.8 (0-2) % Lymph # (Auto) 2.9 (1.2-4.9) X10*3/uL Cassia # (Auto) 0.4 (0.1-1.2) X10*3/uL Eos # (Auto) 0.1 (0.0-0.4) X10*3/uL Baso # (Auto) 0.1 (0.0-0.2) X10*3/uL Abs Immat Gran (auto) 0.02 (0.00-0.03) X10*3/uL Absolute Neuts (auto) 5.0 (2.0-8.3) x10*3/uL Absolute Nucleated RBC 0.000 (0.0-0.012) X10*3/uL Nucleated RBC % (auto) 0.0 (0.0-0.2) /100WBC Sodium 140 (135-145) mmol/L Potassium 3.6 (3.3-5.1) mmol/L Chloride 106 (96-108) mmol/L Carbon Dioxide 25 (22-29) mmol/L Anion Gap 13 (12-20) BUN 16 (9-16) mg/dL Creatinine 0.89 (0.5-1.4) mg/dL Estim Creat Clear Calc 45.8 Estimated GFR > 60 Random Glucose 152 H (60-115) mg/dL Calcium 9.2 D (8.4-10.2) mg/dL Total Bilirubin 0.3 (0.0-1.0) mg/dL AST 71 H (5-31) U/L ALT 23 (0-31) U/L Alkaline Phosphatase 44 (39-117) U/L Troponin I High Sens 3071.1 H* 6332.4 H* D (<3.5-17.0) ng/L B-Natriuretic Peptide 81 (<100) pg/mL Total Protein 6.9 (6.5-8.0) g/dL Albumin 4.5 (3.5-5.0) g/dL Lipase 33 (8-78) U/L Urine Color Yellow Urine Appearance Clear Urine pH 5.5 (5.0-9.0) Ur Specific [place] 1.010 (1.005-1.025) Urine Protein Negative (Neg-Trace) mg/dL Urine Glucose (UA) Negative (Negative) mg/dL Urine Ketones Negative (Negative) mg/dL Urine Blood Trace H (Negative) Urine Nitrite Negative (Negative) Ur Leukocyte Esterase Trace H (Negative) Urine RBC 0-2 (0-2) /HPF Urine WBC 0-5 (0-5) /HPF Ur Squamous Epith Cells 0-2 (0-2) /HPF Urine Bacteria None Seen (None Seen) Hyaline Casts 0-2 (0-2) /LPF Independent Interpretation I performed an independent interpretation of an: EKG Interpretation: Normal sinus rhythm with heart rate 63 beats per minute Q-waves in inferior leads no acute STT wave changes slight T inversion in the lateral leads Radiology Impression Discussion of test interpretation with radiology: I have reviewed the radiologist's reading. Critical Care Time Critical Care Time Critical Care Time: Yes Total Critical Care Time: 65 Attestation: Time is exclusive of separately billable procedures. Time includes: direct patient care, patient reassessment, coordination of patient care, interpretation of data (laboratory data, pulse oximetry, arterial blood gases and chest xrays), review of patient's medical records, medical consultation and documentation of patient care. Procedures excluded from critical care time: central intravenous line placement and electrocardiography. Discharge Plan Discharge Clinical Impression: Acute non-ST elevation myocardial infarction (NSTEMI) Patient Disposition: [facility] Transfer Details: Non-STEMI with elevated troponin without significant ischemic changes on heparin and nitro drip Prescriptions: No Action fluoxetine 20 mg capsule 20 mg PO DAILY Qty: 90 3RF levothyroxine 50 mcg tablet 50 mcg PO DAILY Qty: 90 3RF atorvastatin 10 mg tablet 10 mg PO DAILY Qty: 90 3RF azithromycin 250 mg tablet See Rx Instructions PO .COMPLEX Qty: 6 0RF Rx Instructions: For 250 mg dose pack: take 500 mg today (day 1), then 250 mg for 4 days (days 2-5) PO karena phos-mag [id number] 187.5-40-7.5 mg tablet 1 tab PO DAILY Print Language: Occitan
[2025-05-09 20:09] LABS: MANUAL DIFF FLAG NO
[2025-05-09 20:11] LABS: Hematocrit 37.5 % (37.0-47.0); Hemoglobin 12.9 g/dl (12.0-16.0); Imm Gran Abs Auto 0.02 X10*3/uL (0.00-0.03); Imm Gran Pct Auto 0.2 % (0.0-0.4); Lymphocytes Absolute Auto 2.9 X10*3/uL (1.2-4.9); Mean Corpuscular HGB Conc 34.4 g/dl (31.0-35.0); Mean Corpuscular Hemoglobin 31.9 pg (27.0-33.0); Mean Corpuscular Volume 92.8 fL (80.0-98.0); NRBC Abs Auto 0.000 X10*3/uL (0.0-0.012); NRBC Pct Auto 0.0 /100WBC (0.0-0.2); Platelet Count 186 X10*3/uL (160-400); Red Blood Count 4.04 X10*6/uL (4.20-5.50); White Blood Count 8.4 X10*3/uL (4.8-10.8)
[2025-05-09 20:27] LABS: Alanine Aminotransferase 23 U/L (0-31); Albumin Level 4.5 g/dL (3.5-5.0); Alkaline Phosphatase 44 U/L (39-117); Anion Gap 13 (12-20); Aspartate Amino Transferase 71 U/L (5-31); Blood Urea Nitrogen 16 mg/dL (9-16); Calcium 9.2 mg/dL (8.4-10.2); Carbon Dioxide 25 mmol/L (22-29); Chloride 106 mmol/L (96-108); Creatinine Clr Calc Pharmacy 45.8; Estimated Glomerular Filt Rate > 60; Lipase 33 U/L (8-78); Potassium 3.6 mmol/L (3.3-5.1); Sodium 140 mmol/L (135-145); Total Protein 6.9 g/dL (6.5-8.0)
[2025-05-09 20:33] LABS: B Type Natriuretic Peptide 81 pg/mL (<100)
[2025-05-09 20:43] LABS: Troponin-I High Sensitivity 3071.1 ng/L (<3.5-17.0)
--- OUTSIDE RECORDS SUMMARY | 2025-05-09 20:48 | XMS_ITS | Clinical Summary ---
Author Organization [address] [facility] Address [address] [place] [address] Phone Care Team Providers Care Preparation Supervisor Freezing Name Role Phone Nadiya Griggs Primary Care Provider [phone] Allergies No known active allergies Medications atorvastatin [...] Vaccine ( - 2023-2 5 season) 2024 Depression Screening 10/08/2024 Colorectal Cancer Screening: Colonoscopy 11/04/2024 Falls Risk Assessment 11/04/2024 Hepatitis C Screening 11/04/2024 Medicare Annual Wellness Visit 11/04/2024 Osteoporosis Screening (Bone Density Screening) 11/04/2024 Social Influencers of Health Screening 11/04/2024 Influenza Vaccine (#1) 2025 RSV Immunization Adult Patie nts (1 [...] topic Insurance [employer] MEDICARE Care Teams Preparation Supervisor Freezing Relationship Specialty Start Date End Date Nadiya Griggs PA [address] [place] [address] PCP - General Physician Boarder Hand 11/04/24
[2025-05-09] MEDS: Nitroglycerin 2 % Oint 1 GM Packet 0.5 INCH TRANSDERMA (21:15)
[2025-05-09] MEDS: Aspirin Enteric Coated 81 MG TABLET.DR 162 MG PO (21:16)
[2025-05-09 22:42] LABS: Appearance Urine Clear; Glucose Urine UA Negative (Negative); PH 5.5 (5.0-9.0); Specific Gravity - Urine 1.010 (1.005-1.025); UMIC TRIGGER UACC YES
[2025-05-09 23:22] LABS: Troponin-I High Sensitivity 6332.4 ng/L (<3.5-17.0)
--- NOTE | 2025-05-09 23:22 | ECG_ITS ---
Test Reason : NON STEMI Blood Pressure : */* mmHG Vent. Rate : 46 BPM Atrial Rate : 46 BPM P-R Int : 204 ms QRS Dur : 78 ms QT Int : 494 ms P-R-T Axes : 56 20 67 degrees QTcB Int : 432 ms Sinus bradycardia Nonspecific T wave abnormality Abnormal ECG When compared with ECG of 09-May-2025 21:09, No significant change was found Referred By: Salbador Carter Electronically Signed By: HITESH MADDEN MD
[2025-05-10] MEDS: Heparin Sodium,Porcine/1/2NS 25,000 UNIT/250 ML IV.SOLN 6.84 UNIT IVCONT (00:06)
[2025-05-10 00:12] VITALS: BP 104/60; PULSE 56
[2025-05-10] MEDS: Nitroglycerin/D5W 100 MG/250 ML INFUS..BTL IVCONT (00:12)
[2025-05-10 00:28] VITALS: BP 111/61; PULSE 49
[2025-05-10 00:43] VITALS: BP 102/55; PULSE 50
[2025-05-10 00:44] VITALS: BP 102/55; PULSE 54; RESP 16; O2SAT 96
[2025-05-10 01:00] VITALS: BP 93/65; PULSE 50
--- NOTE | 2025-05-10 01:10 | PC.NURSE ---
Back charting: On pt arrival to the ED, she had complaints of intermit sternal/ left chest pain noted to start yesterday while she was gardening, pt has no cardiac history, only on HLD medications and thyroid medications. Pt reports that the pain has been coming and going. Upon ED arrival pain has been constant, starting at an 9-10/10, given initially ASA/heparin IVP/ nitro oint (applied to left chest). Pt pain continued with no relief, then given Lipitor and morphine. Pt reporting pain did go to an 6-8/10. Pt reporting the pain is not as sharp but that she is mostly feeling it in her back. Pt had #18 placed in L wrist area, and a #20 in her R forearm area. Pt has had serial EKG done, d/t trop and bump in repeat trop. Pt denies KURTZ/N/SOB throughout ED stay. Pt started on Heparin continuously along with continuous IV Nitro.This RN approached provider when oint was placed d/t HR being in the 40-50s MD coyle at that time. On start of drip, oint was removed. Drip started, BPs monitored every 10 minutes. Pt sys 120-130 post drip starting was in sys low 100s. EMS arrived to transport pt BP 93/65, per verbal orders from MD, drop nitro drip to 10mcg which is below parameter MD aware, and 1L NS bolus ordered and hung prior to transport, pt also reporting new onset l-sided KURTZ. Report given to XAVIER Hope on MM5 for nurse to nurse. She was advised that we do not have a PTT on this pt as the provider wanted the drip started prior to results. This RN was alerted at 0033 that the blue top needed to be recollected d/t not enough blood, this RN sent lab themselves and knew it was full but a second blue top was obtained and sent down at 0045, results still pending. receiving RN aware drip was started at 0006, and was aware of nitro changes and IVF prior to transport. Post transfer of pt this RN was notified by lab of PTT 143.2, lab advised it was post bolus/ drip starting, this RN did call [facility] and update RN receiving pt of lab results at this time.
[2025-05-10 01:16] LABS: INTERNATIONAL NORM RATIO 1.0 (0.9-1.1); Prothrombin Time 11.5 SEC (10.9-12.4)
[2025-05-10 01:18] LABS: Partial Thromboplastin Time 143.2 SEC (26.7-34.1)
[2025-05-10 01:22] VITALS: BP 93/65; PULSE 50; RESP 16; TEMP 37; O2SAT 96
== END 2025-05-10 00:55 | disposition short-term general hospital (02) ==
PROVIDERS: Nurse Practitioner Family; Emergency Provider Internal Medicine; PCP Physician Assistant
DX: I21.4 Non-ST elevation (NSTEMI) myocardial infarction (principal); R07.9 Chest pain, unspecified; E78.5 Hyperlipidemia, unspecified; E03.9 Hypothyroidism, unspecified; I25.10 Atherosclerotic heart disease of native coronary artery without angina pectoris; F17.210 Nicotine dependence, cigarettes, uncomplicated; F33.0 Major depressive disorder, recurrent, mild
CPT/HCPCS: 36415; 71046; 80053; 81001; 83690; 83880; 84484; 85025; 85610; 85730; 93005; 96365; 96375; 99285; 99291; J1644; J2270; J2305

== ENCOUNTER → 2025-05-09 19:31 | Outpatient (BNV) | payer MEDICARE, SELFPAY | PROVIDERS: Emergency Provider Internal Medicine; PCP Physician Assistant; Visit Provider Internal Medicine Cardiovascular Disease | DX: R00.1 Bradycardia, unspecified (principal); R94.31 Abnormal electrocardiogram [ECG] [EKG]; R07.89 Other chest pain | CPT/HCPCS: 93010 ==

== ENCOUNTER → 2025-05-09 19:52 | Outpatient (BNV) | payer MEDICARE, SELFPAY | PROVIDERS: Emergency Provider Internal Medicine; PCP Physician Assistant; Visit Provider Family Medicine | DX: R07.9 Chest pain, unspecified (principal) | CPT/HCPCS: 71046 ==

== ENCOUNTER 2025-06-10 10:12 | Outpatient (AMB) | payer MEDICARE, SELFPAY ==
--- NOTE | 2025-06-10 10:19 | MHC.PC.OV ---
Vital Signs 06/10/25 10:26 Height 5 ft Weight 127 lb 4 oz BMI 24.8 BP 92/60 Blood Pressure Location Rt brachial Respiration 12 Pulse 61 Pulse Source Pulse Oximeter Temp 98.4 F Temp Source Oral Pulse Oximetry (%) 96 Oxygen Delivery Method Room Air Intake Visit Reasons: HDFU /heart attack Intake Note: Hospital follow up. If tahir Tax Examining Technician Required: No Allergies No Known Allergies Allergy (Verified 06/10/25 10:20) Medication List - Last Reconciled 06/10/25 by Nadiya Griggs PA-C aspirin 81 mg PO DAILY atorvastatin 80 mg PO DAILY karena phos-mag [id number] 187.5-40-7.5 mg 1 tab PO DAILY fluoxetine 20 mg PO DAILY levothyroxine 50 mcg PO DAILY metoprolol tartrate 12.5 mg PO DAILY [probiotic PO] ticagrelor 90 mg PO BID Tobacco use date assessed: 05/15/24 Fall risk assessment: No Falls in past year Last assessed Fall Risk: 06/10/25 Dental Screening Dental Screen Date: 06/10/25 Did you have a dental visit in the last 12 months?: Yes Did you have a dental problem in the last 6 months where you did not have access to dental care?: No Was dental information given to patient?: Patient has dentist HPI HDFU /heart attack HPI Details Patient is a 69-year-old female who presents today for a hospital follow up. She has a significant past medical history of depression, hyperlipidemia, and hypothyroidism. On 05/09/25 she presented to [facility] with acute chest pain. She was noted to have elevated troponins and BNP. She was found to have an NSTEMI and was transferred to [facility] for an emergent catheterization. When she arrived to [facility] her chest pain improved with the nitro. She then underwent cardiac catheterization on 05/10/2025 to find 100% occlusion of the distal LAD and had a successful PCI. Echo on 05/10/2025 showed LV ejection fraction is 48% and apex is dyskinetic. There is no evidence of left ventricular thrombus. Grade 1, mild diastolic dysfunction with impaired LV relaxation. Patient did not have any significant vessel disease except for distal LAD. She was discharged with a Zio patch and states that she has not yet seen Cardiology or started cardiac rehab. Her medications on discharge were to start Ticagrelor 90 mg twice a day, aspirin 81 mg daily, metoprolol 12.5 mg b.i.d. and increase atorvastatin to 80 mg daily. -they held off on a/Arb due to patient's soft blood pressures during admission. They recommended possibly starting this outpatient if blood pressures elevated. She states since discharge she has been walking and being active and has not had any chest pain or shortness on breath. She also has quit smoking. CV: Her blood pressure today in the office is 92/60 Endo: Last TSH was 1.33. She is on levothyroxine 50 mcg. Psych: States that she has been well-controlled on the fluoxetine 20 mg. [facility] Medical History Nicotine dependence, cigarettes, uncomplicated Recurrent depressive disorder, current episode mild Hypothyroid Hyperlipidemia Surgical History Hx of colonoscopy (~12/23/24) History of kidney surgery History of bilateral breast reduction surgery History of History of wisdom tooth extraction History of partial hysterectomy History of tonsillectomy Family History Mother Lung cancer Social History Housing: Condominium Patient Tobacco Use Status: Former Tobacco user Cigarette Packs Per Day: 10 Years Smoked: (onset 11yo, 1/2ppd x 52yrs, 26pyh, +fam hx lung ca mom) e-Cigarette/Vaping Use: Never Used Second Hand Smoke Exposure: No Current occupational status: retired Current occupational exposures/hazards: No Cognitive needs: No Hearing needs: No Vision needs: Yes (reading glasses) Questionnaire PHQ-9 Over the last 2 weeks, how often have you been bothered by any of the following problems? 1. Little interest or pleasure in doing things: not at all 2. Feeling down, depressed, or hopeless: not at all 3. Trouble falling or staying asleep, or sleeping too much: not at all 4. Feeling tired or having little energy: not at all 5. Poor appetite or overeating: not at all 6. Feeling bad about yourself - or that you are a failure or have let yourself or your family down: not at all 7. Trouble concentrating on things, such as reading the newspaper or watching television: not at all 8. Moving or speaking so slowly that other people could have noticed. Or the opposite - being so fidgety or restless that you have been moving around a lot more than usual: not at all 9. Thoughts that you would be better off or of hurting yourself in some way: not at all Total score: 0 Depression Screening Interpretation: Negative Depression Screening Done: Yes 79587 - PHQ-9 Billing: Yes Source: Developed by Drs. Liban Marquez, Christine Wesley, Carlton Ramos and colleagues, with an educational jojo from [employer]. Thrive Questionnaire Date Thrive assessed: 06/03/25 I am a: Patient What is your living situation today?: I have a steady place to live Within the past 12 months, did the food you bought not last and you didn't have the money to get more?: Never true Within the past 12 months, did you worry whether your food would run out before you got money to buy more?: Never true Do you have trouble paying for medicines?: No Do you have trouble getting transportation to medical appointments?: No Do you have trouble paying your heating and electricity bill?: No Do you have trouble taking care of your child, family member or friend?: No Do you have trouble with day-to-day activities such as bathing, preparing meals, shopping, managing finances, etc.?: No Are you currently unemployed and looking for a job?: No Are you interested in more education?: No Please select the resources that you would like help with: None Currently or been in a relationship where the following occur: No concerns reported THRIVE Score: 0 AUDIT C Alcohol Use Questionnaire (AUDIT-C) 1. How often do you have a drink containing alcohol?: Monthly or less 2. How many drinks containing alcohol do you have on a typical day when you are drinking?: 1 or 2 3. How often do you have six or more drinks on one occasion?: Never Total Score: 1 AURORA-7 AMB Questionnaire AURORA-7 Date AURORA - 7 assessed: 06/10/25 Feeling nervous, anxious, or on edge: 0 = Not at all Not being able to stop or control worryin = Not at all Worrying too much about different things: 0 = Not at all Trouble relaxin = Not at all Being so restless that it is hard to sit still: 0 = Not at all Becoming easily annoyed or irritable: 0 = Not at all Feeling afraid as if something awful might happen: 0 = Not at all Total AURORA-7 score (0-4 normal; 5-9 mild; 10-14 moderate; 15-21 severe): 0 Source: Developed by Drs. Liban Marquez, Christine Wesley, Carlton Ramos and colleagues, with an educational jojo from [employer]. AURORA-7 Assessment Billing AURORA-7 Assessment Tool: AURORA-7 Assessment 52433 Physical exam (Primary Care) Vital Signs: Last Vital Signs Temp 98.4 F 06/10/25 10:26 Pulse 61 06/10/25 10:26 Resp 12 06/10/25 10:26 BP 92/60 06/10/25 10:26 Pulse Ox 96 06/10/25 10:26 Oxygen Delivery Method Room Air 06/10/25 10:26 BMI result Body Mass Index 24.8 Tobacco/Smoking Status: Tobacco use Status Tobacco use date assessed 05/15/24 06/10/25 10:21 Patient Tobacco Use Status Former Tobacco user 06/10/25 10:29 e-Cigarette/Vaping Use Never Used 06/10/25 10:21 PHQ-9: PHQ-9 Score PHQ-9: Total score 0 06/10/25 10:31 Depression Screening Interpretation: Negative Thrive Assessment: Date of Thrive Assessment Date Thrive assessed 06/03/25 06/10/25 10:21 Currently or been in a relationship where the following occur: No concerns reported Const Orientation/consciousness: patient oriented x3 HENMT Ears: hearing grossly normal bilaterally Neck Thyroid: Thyroid normal Lymphatic: no lymphadenopathy noted Resp Auscultation: clear to auscultation bilaterally Cardio Rate: regular rate Rhythm: regular rhythm Heart sounds: S1 normal heart sound present and S2 normal heart sound present GI Inspection: Yes normal to inspection Palpation (GI): Soft to palpation and Other GI palpation findings present (nontender, no cva tenderness) Auscultation: normoactive bowel sounds Rectal Exam - Female: deferred Skin General skin exam: no rashes or lesions noted Neuro General: patient oriented x3, gait normal and no focal motor deficits Coding Level of Care Code Est Pt Level 4 (40182) Complex EM visit Add On G2211 Diagnoses Aortic valve calcification I35.9 CAD S/P percutaneous coronary angioplasty I25.10; Z98.61 Mixed hyperlipidemia E78.2 Hyperlipidemia type: mixed hyperlipidemia Additional Codes AURORA-7 Assessment Billing - AURORA-7 Assessment Tool: AURORA-7 Assessment 60634 ([id number]) PHQ-9 - 77211 - PHQ-9 Billing: Yes ([id number]) Assessment & Plan Assessment & Plan (1) Aortic valve calcification: Code(s): I35.9 - Nonrheumatic aortic valve disorder, unspecified Category: Medical Plan: Reviewed her echo with her. I have already referred her to Cardiology and Cardiac rehab but has not started this yet as she needs a cheese weigher. We will call to see if she can be seen sooner. Reconciled medications and reviewed them with patient today. (2) CAD S/P percutaneous coronary angioplasty: Code(s): I25.10 - Atherosclerotic heart disease of [place] coronary artery without angina pectoris; Z98.61 - Coronary angioplasty status Category: Medical Plan: As above (3) Hyperlipidemia: Code(s): E78.5 - Hyperlipidemia, unspecified Category: Medical Qualifiers: Hyperlipidemia type: mixed hyperlipidemia Qualified Code(s): E78.2 - Mixed hyperlipidemia Plan: Reviewed the increase the atorvastatin. We will recheck labs. Plan Short term follow up. Orders: Orders Complete Blood Count Auto Diff Today E03.9 - Hypothyroidism, unspecified, E78.2 - Mixed hyperlipidemia, I25.10 - Atherosclerotic heart disease of [place] coronary artery without angina pectoris, I35.9 - Nonrheumatic aortic valve disorder, unspecified, Z98.61 - Coronary angioplasty status Comprehensive Hooks. Panel Fast Today E03.9 - Hypothyroidism, unspecified, E78.2 - Mixed hyperlipidemia, I25.10 - Atherosclerotic heart disease of [place] coronary artery without angina pectoris, I35.9 - Nonrheumatic aortic valve disorder, unspecified, Z98.61 - Coronary angioplasty status Lipid Panel Today E03.9 - Hypothyroidism, unspecified, E78.2 - Mixed hyperlipidemia, I25.10 - Atherosclerotic heart disease of [place] coronary artery without angina pectoris, I35.9 - Nonrheumatic aortic valve disorder, unspecified, Z98.61 - Coronary angioplasty status TSH reflex Free T4 Today E03.9 - Hypothyroidism, unspecified, E78.2 - Mixed hyperlipidemia, I25.10 - Atherosclerotic heart disease of [place] coronary artery without angina pectoris, I35.9 - Nonrheumatic aortic valve disorder, unspecified, Z98.61 - Coronary angioplasty status Medications: New aspirin 81 mg PO DAILY 90 tabs 3RF atorvastatin 80 mg PO DAILY 90 tabs 3RF metoprolol tartrate 12.5 mg (1/2 x 25 mg) PO DAILY 90 tabs 3RF Refilled fluoxetine 20 mg PO DAILY 90 caps 3RF levothyroxine 50 mcg PO DAILY 90 tabs 3RF
[2025-06-10 10:26] VITALS: BP 92/60; PULSE 61; RESP 12; TEMP 36.9; O2SAT 96; BMI 24.8
--- OUTSIDE RECORDS SUMMARY | 2025-06-10 11:41 | XMS_ITS | Clinical Summary ---
Author Organization 175 [facility] Address [address] [place] [address] Phone Care Team Providers Care Production Crew Supervisor Name Role Phone Nadiya Griggs Primary Care Provider [phone] Allergies No known active allergies Medications atorvastatin [...] 12/28/2003 Zoster Vaccines (1 of 2) 12/28/2003 Depression Screening 10/08/2024 Colorectal Cancer Screening: Colonoscopy 11/04/2024 Falls Risk Assessment 11/04/2024 Hepatitis C Screening 11/04/2024 Medicare Annual Wellness Visit 11/04/2024 Osteoporosis Screening (Bone Density Screening) 11/04/2024 Social Influencers of Health Screening 11/04/2024 COVID-19 Vaccine ( - 2023-2 5 season) 2025 Influenza Vaccine (#1) 2025 RSV Immunization Adult [...] topic Insurance [employer] MEDICARE Care Teams Production Crew Supervisor Relationship Specialty Start Date End Date Nadiya Griggs PA [address] [place] [address] PCP - General Physician Patient Safety Attendant 11/04/24
== END 2025-06-10 11:09 | disposition home or self-care (01) ==
LOC: HO.HMCFM 10:13
PROVIDERS: PCP Physician Assistant; Visit Provider Physician Assistant
DX: I35.9 Nonrheumatic aortic valve disorder, unspecified (principal); I25.10 Atherosclerotic heart disease of native coronary artery without angina pectoris; Z98.61 Coronary angioplasty status; E78.2 Mixed hyperlipidemia

== ENCOUNTER → 2025-06-10 10:12 | Outpatient (BNVA) | payer MEDICARE, SELFPAY | PROVIDERS: PCP Physician Assistant; Visit Provider Physician Assistant | DX: I35.9 Nonrheumatic aortic valve disorder, unspecified (principal); I25.10 Atherosclerotic heart disease of native coronary artery without angina pectoris; E78.2 Mixed hyperlipidemia; Z98.61 Coronary angioplasty status | CPT/HCPCS: 96127; 99212 ==

== ENCOUNTER 2025-07-08 07:04 | Outpatient (REF) | payer MEDICARE, SELFPAY ==
--- OUTSIDE RECORDS SUMMARY | 2025-07-08 07:07 | XMS_ITS | Clinical Summary ---
Author Organization 175 [facility] Address [address] [place] [address] Phone Care Team Providers Care Apparatus Repair Mechanic Name Role Phone Nadiya Griggs Primary Care Provider [phone] Allergies No known active allergies Medications atorvastatin [...] complete this topic Insurance [employer] [address] Care Teams Apparatus Repair Mechanic Relationship Specialty Start Date End Date Nadiya Griggs PA [address] [place] [address] PCP - General Physician Check Writer 11/04/24
[2025-07-08 07:22] LABS: MANUAL DIFF FLAG NO
[2025-07-08 07:39] LABS: Hematocrit 39.5 % (37.0-47.0); Hemoglobin 13.1 g/dl (12.0-16.0); Imm Gran Abs Auto 0.02 X10*3/uL (0.00-0.03); Imm Gran Pct Auto 0.3 % (0.0-0.4); Lymphocytes Absolute Auto 1.9 X10*3/uL (1.2-4.9); Mean Corpuscular HGB Conc 33.2 g/dl (31.0-35.0); Mean Corpuscular Hemoglobin 31.5 pg (27.0-33.0); Mean Corpuscular Volume 95.0 fL (80.0-98.0); NRBC Abs Auto 0.000 X10*3/uL (0.0-0.012); NRBC Pct Auto 0.0 /100WBC (0.0-0.2); Platelet Count 186 X10*3/uL (160-400); Red Blood Count 4.16 X10*6/uL (4.20-5.50); White Blood Count 5.8 X10*3/uL (4.8-10.8)
[2025-07-08 08:26] LABS: Alanine Aminotransferase 76 U/L (0-31); Albumin Level 4.7 g/dL (3.5-5.0); Anion Gap 13 (12-20); Aspartate Amino Transferase 54 U/L (5-31); Blood Urea Nitrogen 23 mg/dL (9-16); Calcium 9.8 mg/dL (8.4-10.2); Carbon Dioxide 26 mmol/L (22-29); Chloride 108 mmol/L (96-108); Cholesterol 157 mg/dL (<200); Estimated Glomerular Filt Rate 56; HDL Cholesterol 49 mg/dL (>40); Potassium 4.4 mmol/L (3.3-5.1); Sodium 143 mmol/L (135-145); Total Protein 7.1 g/dL (6.5-8.0); Triglycerides 118 mg/dL (<150)
[2025-07-08 08:41] LABS: Alkaline Phosphatase 56 U/L (39-117)
== END 2025-07-08 07:05 | disposition home or self-care (01) ==
LOC: HO.LAB 07:04
PROVIDERS: PCP Physician Assistant; Visit Provider Physician Assistant
DX: I25.10 Atherosclerotic heart disease of native coronary artery without angina pectoris (principal); I35.9 Nonrheumatic aortic valve disorder, unspecified; E78.2 Mixed hyperlipidemia; E03.9 Hypothyroidism, unspecified; Z98.61 Coronary angioplasty status
CPT/HCPCS: 36415; 80053; 80061; 84443; 85025

== ENCOUNTER 2025-07-09 11:19 | Outpatient (REF) | payer MEDICARE, SELFPAY ==
--- OUTSIDE RECORDS SUMMARY | 2025-07-09 13:13 | XMS_ITS | Clinical Summary ---
Author Organization 175 [facility] Address [address] [place] [address] Phone Care Team Providers Care Semiconductor Testing Group Leader Name Role Phone Nadiya Griggs Primary Care Provider [phone] Allergies No known active allergies Medications atorvastatin [...] topic Insurance [employer] MEDICARE Care Teams Semiconductor Testing Group Leader Relationship Specialty Start Date End Date Nadiya Griggs PA [address] [place] [address] PCP - General Physician Sample Puller 11/04/24
[2025-07-09 13:31] LABS: Appearance Urine Clear; Glucose Urine UA Negative (Negative); PH 6.5 (5.0-9.0); Specific Gravity - Urine <= 1.005 (1.005-1.025); UMIC TRIGGER UACC YES
== END 2025-07-09 11:20 | disposition home or self-care (01) ==
LOC: HO.LAB 11:19
PROVIDERS: PCP Physician Assistant; Visit Provider Physician Assistant
DX: Z13.220 Encounter for screening for lipoid disorders (principal); M79.671 Pain in right foot; F33.0 Major depressive disorder, recurrent, mild; E03.9 Hypothyroidism, unspecified; E78.2 Mixed hyperlipidemia
CPT/HCPCS: 81001; 81003

== ENCOUNTER 2025-08-04 09:20 | Outpatient (AMB) | payer MEDICARE, SELFPAY ==
--- NOTE | 2025-08-04 09:47 | MHC.OFFVIS ---
Vital Signs 08/04/25 09:48 Height 5 ft Weight 129 lb 3.054 oz BMI 25.2 BP 98/62 Blood Pressure Location Rt brachial Position Sitting Pulse 64 Pulse Source Monitor Intake Visit Reasons: f/u cardaic rehab cp per NS Mixer Operator Required: No Accompanied by: Self / Same As Patient Allergies No Known Allergies Allergy (Verified 08/04/25 09:51) Medication List - Last Reconciled 08/04/25 by CHUY Be aspirin 81 mg PO DAILY atorvastatin 80 mg PO DAILY karena phos-mag [id number] 187.5-40-7.5 mg 1 tab PO DAILY clopidogrel 75 mg PO DAILY fluoxetine 20 mg PO DAILY levothyroxine 50 mcg PO DAILY [probiotic PO] HPI HPI f/u card[facility] rehab cp per NS: Details: Gail is a 69-year-old female with past medical history of hyperlipidemia and smoking who recently presented to [facility] with chest discomfort and ruled in for NSTEMI. She underwent cardiac catheterization showing distal LAD 100% stenosis, SARAH placed. Echo showed EF 48%, mild . She was enrolled in cardiac rehab and they notified us 08/03 the patient had an episode of chest discomfort during exercise. She had a new patient cardiology appointment with Dr. Shelton next month however seen here today for that visit. Today she is here for cardiology consultation. She states when she had her MS she was working in the garden and pushing a wheelbarrow. She developed a pain in her mid chest that did not resolve with rest. She had it through the rest of that day and it did improve some with ibuprofen. She went to the bed that night and felt generally well but the pain did return in the morning. That evening she did go to the ER since it was persisting. She has not had any recurrent symptom like that since the stent was placed. She tells me when she was exercising on the treadmill at rehab she had a very different feeling in her right chest region. She said it was like a mild tightness that did gradually go away. She has not had any recurrent symptoms like this. She completed cardiac rehab at that last session. She has been doing normal activities around the house and doing light gardening. She is noticing fatigue and has been having issues with constipation. Otherwise no concerning symptoms. She has no shortness of breath, lightheadedness, leg edema. She is taking meds as directed. No bleeding issues reported. Her liver tests were mildly elevated and she has a repeat LFT and lipid panel due in a month. She says her PCP ordered a liver ultrasound but it is not scheduled until October. She is asking about getting a dental cleaning. Long-term smoker, age 10 until this year. Quit on the day that she went into the hospital for her MS. Reports mother had history of MS in her 50s but lived until age 88. No other family history of heart disease. [facility] Medical History Nicotine dependence, cigarettes, uncomplicated Recurrent depressive disorder, current episode mild Hypothyroid Hyperlipidemia Surgical History Hx of colonoscopy (~12/23/24) History of kidney surgery History of bilateral breast reduction surgery History of History of wisdom tooth extraction History of partial hysterectomy History of tonsillectomy Family History Mother Lung cancer Social History Housing: Condominium Patient Tobacco Use Status: Former Tobacco user Cigarette Packs Per Day: 10 Years Smoked: (onset 11yo, 1/2ppd x 52yrs, 26pyh, +fam hx lung ca mom) e-Cigarette/Vaping Use: Never Used Second Hand Smoke Exposure: No Current occupational status: retired Current occupational exposures/hazards: No Cognitive needs: No Hearing needs: No Vision needs: Yes (reading glasses) Review of Systems Const All systems reviewed & are unremarkable except as noted in HPI and below Denies daytime sleepiness, Denies difficulty sleeping, Reports fatigue, Denies snoring, Denies stops breathing during sleep and Denies weakness Card Reports chest pain (x1 - no reoccurrence), Denies rapid heart rate, Denies irregular heart rhythm, Denies claudication, Denies leg edema, Denies lightheadedness, Denies palpitations, Denies dyspnea, Denies dyspnea on exertion, Denies orthopnea, Denies paroxysmal nocturnal dyspnea and Denies slow heart rate Resp Denies cough, Denies dyspnea, Denies dyspnea on exertion and Denies snoring GI Details: constipation Denies hematochezia and Denies dyspepsia Musc Denies abnormal gait, Denies muscle weakness and Denies numbness Neuro Denies abnormal gait, Denies numbness and Denies weakness Endo Reports fatigue and Denies palpitations Physical Exam Vital Signs: Last Vital Signs Pulse 64 08/04/25 09:48 BP 98/62 08/04/25 09:48 BMI result Body Mass Index 25.2 Const General: cooperative, healthy appearing, comfortable and no acute distress Orientation/consciousness: patient oriented x3 Neck Neck: Yes normal visual inspection and Yes no JVD Resp Effort & Inspection: normal respiratory effort Auscultation: clear to auscultation bilaterally, no rales, no rhonchi and no wheezes Cardio Rate: regular rate Rhythm: regular rhythm Heart sounds: S1 normal heart sound present, S2 normal heart sound present, no gallops, no murmurs and no rubs Neuro General: patient oriented x3 Extrem General: Yes normal to inspection, No no pedal edema and No calf tenderness Psych Appearance: grossly normal Mental Status: mental status grossly normal Speech and movement: Normal speech and movement present Office Procedures EKG Details: Today read by me, normal sinsu rhythm, nonspecific T wave abn, rate 64, Qtc 431ms [id number], Complete Assessment & Plan Assessment & Plan (1) NSTEMI (non-ST elevation myocardial infarction): Code(s): I21.4 - Non-ST elevation (NSTEMI) myocardial infarction Category: Medical Plan: NSTEMI 05/09/2025 with symptom of mid chest discomfort. Cardiac risk factors of hyperlipidemia, smoking, age, family history. Cardiac catheterization 05/10/2025 with distal LAD 100% stenosis, SARAH placed. Echocardiogram 05/11/2025 with EF 48%, grade 1 diastolic dysfunction, mild aortic stenosis. She was put on aspirin indefinitely, Plavix uninterrupted for at least 1 year, high-dose atorvastatin. She initially on metoprolol however it was stopped by PCP due to low blood pressures. She did have episode of right chest tightness during cardiac rehab, different from prior angina, without reoccurrence. EKG today showing normal sinus rhythm with nonspecific T-wave abnormality, rate 64. Signs and symptoms of an angina reviewed with her. Will update limited echocardiogram to reassess EF and wall motion. No med changes made. Cardiology follow-up 3 months, sooner if needed. (2) CAD S/P percutaneous coronary angioplasty: Code(s): I25.10 - Atherosclerotic heart disease of [place] coronary artery without angina pectoris; Z98.61 - Coronary angioplasty status Category: Medical Plan: Single-vessel coronary artery disease. (3) S/P cardiac cath: Comment: 05/10/2025, distal LAD mid subsection 100% stenosis, culprit lesion, SARAH placed. Code(s): Z98.890 - Other specified postprocedural states Category: Surgical Plan: As above (4) Chest discomfort: Code(s): R07.89 - Other chest pain Category: Medical Plan: Episode of chest discomfort during cardiac rehab unlike prior angina. She has been physically active since that time and has not had any reoccurrence. This symptom may have been musculoskeletal. No evidence this was recurrent angina. (5) Hyperlipidemia: Code(s): E78.5 - Hyperlipidemia, unspecified Category: Medical Qualifiers: Hyperlipidemia type: mixed hyperlipidemia Qualified Code(s): E78.2 - Mixed hyperlipidemia Plan: LDL goal less than 70, ideally less than 55. She is on atorvastatin 80 mg daily and labs done 07/08/2025 showed elevation in LFTs, LDL 85. She has seen her PCP and repeat LFT and lipid profile is scheduled to be done next month. She has also ordered a liver ultrasound for further evaluation. Currently asymptomatic. It seems she will need better LDL control however, test will be repeated in the near future. (6) Aortic valve calcification: Code(s): I35.9 - Nonrheumatic aortic valve disorder, unspecified Category: Medical Plan: Echocardiogram shows mild aortic stenosis. Will need to follow periodically with echocardiograms. Continue atorvastatin. Plan During the visit, we discussed the patient's myocardial infarction and the importance of continuing aspirin and clopidogrel to maintain stent patency. We also reviewed the need for a follow-up echocardiogram to assess cardiac function and the potential need for additional lipid-lowering therapy if cholesterol levels remain elevated. The patient was advised to use stool softeners to manage constipation and to monitor for any changes in liver function due to atorvastatin. Orders: Orders CA Echo Limited Today I21.4 - Non-ST elevation (NSTEMI) myocardial infarction, I25.10 - Atherosclerotic heart disease of [place] coronary artery without angina pectoris, Z98.61 - Coronary angioplasty status Patient Instructions: - Continue taking aspirin and clopidogrel as prescribed. - Schedule and attend follow-up echocardiogram. - Monitor for any changes in symptoms or new symptoms. - Recheck cholesterol and liver function tests as scheduled. Patient was informed and verbally consented to the use of an ambient scribe for clinic note documentation during this visit. Visit time spent on chart review, interview, assessment, orders, documentation. Coding Level of Care Code New Pt Level 4 (71113) Complex EM visit Add On G2211 Diagnoses NSTEMI (non-ST elevation myocardial infarction) I21.4 CAD S/P percutaneous coronary angioplasty I25.10; Z98.61 S/P cardiac cath Z98.890 Chest discomfort R07.89 Mixed hyperlipidemia E78.2 Hyperlipidemia type: mixed hyperlipidemia Aortic valve calcification I35.9 CPT Codes EKG - CPT: 31829-[id number], Complete ([id number]) Time Spent (min) 32
[2025-08-04 09:48] VITALS: BP 98/62; PULSE 64; BMI 25.2
--- OUTSIDE RECORDS SUMMARY | 2025-08-04 10:31 | XMS_ITS | Clinical Summary ---
Author Organization 175 [facility] Address [address] [place] [address] Phone Care Team Providers Care Transit Mixer Operator Name Role Phone Nadiya Griggs Primary Care Provider [phone] Allergies No known active allergies Medications atorvastatin [...] Last Done Comments Breast Cancer Screening 1955 Colorectal Cancer Screening: Colonoscopy 1955 DTaP,Tdap,and Td Vaccines (1 - Tdap) 1972 Pneumococcal Vaccine: 50+ Ye ars (1 of 1 - PCV) 12/28/2003 Zoster Vaccines (1 of 2) 12/28/2003 Depression Screening 10/08/2024 Falls Risk Assessment 11/04/2024 Hepatitis C Screening [...] topic Insurance [employer] MEDICARE Care Teams Transit Mixer Operator Relationship Specialty Start Date End Date Nadiya Griggs PA [address] [place] [address] PCP - General Physician Community Arts Worker 11/04/24
== END 2025-08-04 10:31 | disposition home or self-care (01) ==
LOC: HO.HCS 09:21
PROVIDERS: PCP Physician Assistant; Visit Provider Nurse Practitioner Family
DX: I21.4 Non-ST elevation (NSTEMI) myocardial infarction (principal); I25.10 Atherosclerotic heart disease of native coronary artery without angina pectoris; Z98.61 Coronary angioplasty status; Z98.890 Other specified postprocedural states; R07.89 Other chest pain; E78.2 Mixed hyperlipidemia; I35.9 Nonrheumatic aortic valve disorder, unspecified
CPT/HCPCS: 93010; 99204; G2211

== ENCOUNTER → 2025-08-04 09:20 | Outpatient (BNVA) | payer MEDICARE, SELFPAY | PROVIDERS: PCP Physician Assistant; Visit Provider Nurse Practitioner Family | DX: I25.2 Old myocardial infarction (principal); I25.10 Atherosclerotic heart disease of native coronary artery without angina pectoris; R07.89 Other chest pain; I35.9 Nonrheumatic aortic valve disorder, unspecified; E78.2 Mixed hyperlipidemia; R94.31 Abnormal electrocardiogram [ECG] [EKG]; Z79.82 Long term (current) use of aspirin; Z98.61 Coronary angioplasty status; Z98.890 Other specified postprocedural states | CPT/HCPCS: 93005; 99202 ==

== ENCOUNTER 2025-08-24 07:31 | Outpatient (REF) | payer MEDICARE, SELFPAY ==
[2025-08-24 10:14] LABS: Appearance Urine Clear; Glucose Urine UA Negative (Negative); PH 7.5 (5.0-9.0); Specific Gravity - Urine 1.020 (1.005-1.025); UMIC TRIGGER UACC YES
[2025-08-24 10:40] LABS: UACC Culture Trigger YES
[2025-08-24 10:55] LABS: Alanine Aminotransferase 38 U/L (0-31); Albumin Level 4.6 g/dL (3.5-5.0); Alkaline Phosphatase 52 U/L (39-117); Aspartate Amino Transferase 37 U/L (5-31); Gamma Glutamyl Transpeptidase 30 U/L (7-33); Total Protein 6.9 g/dL (6.5-8.0)
[2025-08-24 11:02] LABS: HBsAGNum1 0.33 S/CO (0.00-0.99); Hepatitis B Surface Antigen Negative (Negative); ~HepC Num1 0.10 S/CO (0.00-0.79); ~Hepatitis C Antibody Nonreactive (Nonreactive)
== END 2025-08-24 07:32 | disposition home or self-care (01) ==
LOC: HO.HMGCLDS 07:31
PROVIDERS: PCP Physician Assistant; Visit Provider Physician Assistant
DX: Z11.59 Encounter for screening for other viral diseases (principal); R94.5 Abnormal results of liver function studies
CPT/HCPCS: 36415; 80076; 81001; 82977; 86803; 87086; 87340